=== PATIENT | male | born 1950 | race African-American/Black ===

== ENCOUNTER 2023-08-16 16:20 | Outpatient (CLI) | payer MEDICARE, SELFPAY ==
[2023-08-16 18:24] LABS: Basophils # 0.1 K/mm3 (0-0.2); Basophils % 0.4 % (0.1-2.0); Eosinophils % 0.3 % (0.1-12.0); Hematocrit 39.1 % (42.0-52.0); Hemoglobin 12.8 g/dL (14.1-18.0); Lymphocytes # 1.3 K/mm3 (0.7-4.5); Lymphocytes % 11.2 % (10-50); Mean Corpuscular HGB Conc 32.8 g/dL (31.8-35.4); Mean Corpuscular Hemoglobin 31.2 pg (27.0-31.2); Mean Corpuscular Volume 95.2 fl (80-94); Mean Platelet Volume 8.3 fl (7.4-10.4); Monocytes # 0.5 K/mm3 (0.1-1.0); Neutrophils # 9.9 K/mm3 (1.8-7.8); Neutrophils % 84.1 % (37.0-80.0); Platelet Count 445 K/mm3 (142-424); Red Blood Count 4.11 M/mm3 (4.60-6.20); Red Cell Distribution Width 13.3 % (11.5-17.5); White Blood Count 11.8 K/mm3 (4.8-10.8)
[2023-08-16 18:43] LABS: Alanine Aminotransferase 56 U/L (12-78); Albumin Level 3.6 g/dl (3.5-5.0); Albumin/Globulin Ratio 1.2 (1.1-1.8); Alkaline Phosphatase 86 U/L (38-126); Aspartate Amino Transferase 73 U/L (17-59); Bilirubin,Total 0.5 mg/dl (0.2-1.3); Blood Urea Nitrogen 16 mg/dl (9-20); Calcium 9.1 mg/dl (8.4-10.2); Carbon Dioxide 33 mmol/L (22.0-30.0); Chloride 95 mmol/L (98-107); Estimated Glomerular Filt Rate 133 ml/min (>60); GFR (African American) 161 ML/MIN (>60); Glucose 199 mg/dl (74-100); Sodium 137 mmol/L (136-145); Total Protein,Serum 6.6 g/dl (6.3-8.2)
[2023-08-16 19:19] LABS: Occult Blood,Stool Negative (Negative)
== END 2023-08-16 23:59 | disposition home or self-care (01) ==
PROVIDERS: PCP Nurse Practitioner Family; Visit Provider Family Medicine
DX: R53.83 Other fatigue (principal); R19.7 Diarrhea, unspecified
CPT/HCPCS: 80053; 82272; 85025; G0328

== ENCOUNTER 2023-09-21 19:15 | Emergency (ER) | payer MEDICARE, SELFPAY ==
[2023-09-21] VITALS (9 sets, daily range): BP systolic 102–141; BP diastolic 42–62; PULSE 53–89; RESP 15–18; TEMP 37.2–37.4; O2SAT 98–100; BMI 19.5
--- NOTE | 2023-09-21 19:04 | ED_ITS ---
<Statement entered by Vicky Varghese MD - 09/21/23 22:58> I was consulted by the RINKU, and we discussed the complexity of the problems being addressed. I approved the treatment and management plan for this patient's care in the emergency department, thus performing a substantive portion of the medical decision making. Vicky Varghese MD, MELBA, FACEP Discharge Plan Disposition Patient Disposition: Home, Self-Care Condition: Good Prescriptions Prescriptions: No Action hydroxyzine pamoate [Vistaril] 25 mg capsule 25 mg PO TID PRN (Reason: anxiety) Qty: 30 0RF ibuprofen 600 mg tablet 600 mg PO Q6H PRN (Reason: fever or pain) Qty: 120 0RF lansoprazole 15 mg capsule,delayed release(DR/EC) 15 mg PO QAM Qty: 90 0RF quetiapine [Seroquel] 25 mg tablet 75 mg PO BID Qty: 180 3RF terazosin 2 mg capsule 2 mg PO HS Qty: 90 3RF acetaminophen [Tylenol Extra Strength] 500 mg tablet 500 mg PO Q6H PRN (Reason: fever or pain) Qty: 90 0RF lactulose 20 gram/30 mL solution 20 g PO DAILY PRN (Reason: constipation) Qty: 3000 2RF loperamide [Imodium A-D] 2 mg capsule 2 mg PO Q6H PRN (Reason: loose stool) Qty: 30 0RF ondansetron HCl 4 mg tablet 4 mg PO Q6H PRN (Reason: nausea and vomiting) Qty: 30 0RF lorazepam 0.5 mg tablet 0.5 mg PO BID Qty: 60 0RF Referrals Follow up/Referrals: Provider,Referral, [Primary Care Provider] - See instructions Activity Restrictions/Add. Instructions Additional Instructions/Restrictions: Patient needs a bowel regimen for chronic constipation, patient needs further evaluation of his gallbladder function, patient needs a nonemergent contrasted study of his abdomen pelvis per the radiologist recommendation for potential findings seen on the noncontrasted study. Return to ER for any worsening signs or symptoms. Clinical Impressions Clinical Impression: Abdominal pain Instructions Patient Instructions: DI for Acute Abdominal Pain Discharge ED Provider: Vicky Varghese General Adult HPI <TEREZA Jimenez - Last Filed: 09/21/23 22:28> General Chief complaint: Abdominal Pain Stated complaint: AMS, ABD PAIN Time Seen by Provider: 09/21/23 19:25 History of Present Illness HPI narrative: Patient presents from local senior living for evaluation of abdominal pain. At the time my exam I cannot get any history from the patient as he has chronic communication deficit and all he can do is grunt. He cannot follow commands at the moment. Reportedly he is on a pur?ed diet but has a PEG tube placed for future needs has a chronic indwelling Wakefield for chronic urinary retention for BPH. Reportedly he communicated that he was having abdominal pain to the senior living staff and he sent him here for evaluation. No other history can be obtained from the patient. Related Data Previous Rx's Medication Instructions Recorded acetaminophen 500 mg tablet 500 mg PO Q6H PRN fever or pain 07/26/23 (Tylenol Extra Strength) #90 tabs hydroxyzine pamoate 25 mg capsule 25 mg PO TID PRN anxiety #30 caps 07/26/23 (Vistaril) ibuprofen 600 mg tablet 600 mg PO Q6H PRN fever or pain 07/26/23 #120 tabs lactulose 20 gram/30 mL oral 20 g (30 mL) PO DAILY PRN 07/26/23 solution constipation #3,000 mL lansoprazole 15 mg capsule,delayed 15 mg PO QAM #90 caps 07/26/23 release loperamide 2 mg capsule (Imodium 2 mg PO Q6H PRN loose stool #30 07/26/23 A-D) caps ondansetron HCl 4 mg tablet 4 mg PO Q6H PRN nausea and 07/26/23 vomiting #30 tabs quetiapine 25 mg tablet (Seroquel) 75 mg (3 x 25 mg) PO BID #180 tabs 07/26/23 terazosin 2 mg capsule 2 mg PO HS #90 caps 07/26/23 lorazepam 0.5 mg tablet 0.5 mg PO BID #60 tabs 08/04/23 Allergies Allergy/AdvReac Type Severity Reaction Status Date / Time simvastatin AdvReac muscle Verified 08/27/23 10:37 aches PFS <TEREZA Jimenez - Last Filed: 09/21/23 22:28> PFS Disclaimer: The information contained in this section may have been updated after the patient was seen, as this information can be updated by other users. Medical History Wakefield catheter in place FTT (failure to thrive) in adult Dysphagia Malnutrition HLD (hyperlipidemia) no current meds HTN (hypertension) Diabetes mellitus Urinary retention Cognitive decline Agitation frequent agitation reported by nursing. occasionally aggressive toward staff Communication deficit SERINA (acute kidney injury) Anxiety and depression Insomnia Pressure ulcer of right buttock, stage 2 Pressure ulcer of sacral region, stage 3 CVA (cerebral vascular accident) Surgical History S/P percutaneous endoscopic gastrostomy (PEG) tube placement History of gastrostomy tube placement Social History (Updated 07/27/23 @ 10:13 by Garrett Brown MD) Smoking Status: Never smoker alcohol intake: former year quit: unkn current occupational status: disabled Travel in the last 8 weeks: None <TEREZA Jimenez - Last Filed: 09/21/23 22:28> ROS Obtained: Yes unobtainable due to mental status and Yes unobtainable due to mental condition Physical Exam <TEREZA Jimenez - Last Filed: 09/21/23 22:28> General General appearance: alert and in no apparent distress Head Head exam: atraumatic and normal inspection Eye Eye exam: Present normal appearance and EOMI ENT ENT exam: Present mucous membranes dry Neck Neck exam: Present normal inspection; Absent lymphadenopathy Chest Chest inspection: Present normal inspection and symmetric chest wall rise; Absent tenderness Respiratory Respiratory exam: Present normal lung sounds bilaterally; Absent respiratory distress, wheezes, stridor or accessory muscle use Cardiovascular Cardiovascular exam: Present regular rate and normal rhythm Abdominal Exam Abdominal exam: Present soft, tenderness (Patient has tenderness to palpation in the lower abdomen without rebound or guarding or rigidity.) and normal bowel sounds; Absent guarding or rebound Neurological Exam Neurological exam: Present alert (Patient is awake and is not interactive not following commands making grunting sounds when asked direct questions. Glascow coma score is a 4 - 2 - 5); Absent oriented X3 Skin Skin exam: Present dry Medical Decision Making <TEREZA Jimenez - Last Filed: 09/21/23 22:28> Medical Records Medical records reviewed: Yes I reviewed the patient's medical records. Juan Inquiry Pt receiving controlled substance: No Vital Signs: 09/21/23 19:15 09/21/23 19:30 09/21/23 20:00 Temperature 99.4 F Temperature Source Rectal Pulse Rate 72 89 Pulse Rate [Left] 73 Respiratory Rate 18 Blood Pressure 120/49 L 126/58 L Blood Pressure [Right Arm] 120/49 L Blood Pressure Mean [Right Arm] 72 Blood Pressure Source [Right Arm] Automatic Cuff Blood Pressure Position [Right Arm] Right Lateral 02 Sat by Pulse Oximetry 99 98 100 Oxygen Delivery Method Room Air 09/21/23 20:55 09/21/23 21:00 Temperature Temperature Source Pulse Rate 68 78 Pulse Rate [Left] Respiratory Rate Blood Pressure 141/62 H 125/56 L Blood Pressure [Right Arm] Blood Pressure Mean [Right Arm] Blood Pressure Source [Right Arm] Blood Pressure Position [Right Arm] 02 Sat by Pulse Oximetry 99 100 Oxygen Delivery Method Lab Data Lab results reviewed: Yes I reviewed the patient's lab results. Lab Results 09/21/23 21:27: WBC 10.8, RBC 3.39 L, Hgb 10.4 L, Hct 31.1 L, MCV 91.8, MCH 30.6, MCHC 33.3, RDW 14.4, Plt Count 399, MPV 8.1, Neut % (Auto) 89.1 H, Lymph % (Auto) 6.6 L, Grundy % (Auto) 3.6, Eos % (Auto) 0.5, Baso % (Auto) 0.1, Neut # (Auto) 9.6 H, Lymph # (Auto) 0.7, Grundy # (Auto) 0.4, Eos # (Auto) 0.1, Baso # (Auto) 0.0, Sodium 133 L, Potassium 4.3, Chloride 102, Carbon Dioxide 28, Anion Gap 7.3, BUN 21 H, Creatinine 0.80, Estimated Creat Clear 54, Estimated GFR 95, Est GFR ( Amer) 115, Glucose 185 H, Calcium 8.5, Total Bilirubin 0.2, AST 37, ALT 50, Alkaline Phosphatase 78, Total Protein 6.2 L, Albumin 2.9 L, G lobulin 3.3 H, Albumin/Globulin Ratio 0.9 L 09/21/23 21:27 09/21/23 21:27 Orders (Tests/Meds): ED MEDICATIONS Discontinued Medications Generic Name Dose Route Start Last Admin Trade Name Freq PRN Reason Stop Dose Admin Acetaminophen 1,000 mg 09/21/23 20:00 09/21/23 21:00 Acetaminophen 1,000mg/100ml Vial IV 09/21/23 20:01 1,000 mg ONCE ONE Administration Lactated Ringer's 1,000 mls @ 999 mls/hr 09/21/23 20:00 09/21/23 20:57 Lactated Ringer's 1000 Ml Bag IV 09/21/23 21:00 999 mls/hr .Q1H1M ONE Administration Ondansetron HCl 4 mg 09/21/23 20:00 09/21/23 20:56 Ondansetron 4mg/2ml Vial IV 09/21/23 20:01 4 mg ONCE ONE Administration ORDERS Category Date Time Status CT abdomen pelvis wo con Stat Cat Scan 09/21/23 20:01 Completed POCUS Point of Care (ER Only) Stat Exams 09/21/23 21:09 Taken CBC w/Auto Diff [Complete Blood Count Auto Diff] Stat Lab 09/21/23 21:27 Results CMP [Comprehensive Metabolic Panel] Stat Lab 09/21/23 21:27 Completed UA [Urinalysis and Microscopic] Stat Lab 09/21/23 20:01 Ordered Medical Decision Narrative: In summary patient is a 73-year-old male who presents to the emergency department for evaluation of reported abdominal pain. Patient is hemodynamically stable upon arrival, afebrile. Physical exam shows a severely cachectic, with a BMI of 19, 73-year-old male who otherwise is in no acute distress. GCS is currently 11 primarily due to the ability to follow commands or communicate but is awake. Patient grimaces when at palpation of his bilateral lower quadrant but bowel sounds are normal active. Differential diagnosis includes bowel obstruction versus constipation versus cholecystitis versus ulcer disease versus diverticulitis etc. Initial workup will be conducted with hematologic labs urinalysis CT scan abdomen pelvis. Initial interventions include crystalloid bolus Toradol Tylenol Zofran. Initial workup reviewed by me shows that his hematologic labs are nonactionable and his CT scan has multiple chronic findings but no acute processes. Upon repeat evaluation patient is resting comfortably and I am unable to provoke any focal abdominal pain. We have been unable to identify any acute serious or life-threatening problem requiring intervention during her ER workup. Given this, the patient is appropriate for discharge back to [facility] facility with outpatient follow-up for the chronic findings found on CT. <Vicky Varghese MD - Last Filed: 09/21/23 21:43> Vital Signs: 09/21/23 19:15 09/21/23 19:30 09/21/23 20:00 Temperature 99.4 F Temperature Source Rectal Pulse Rate 72 89 Pulse Rate [Left] 73 Respiratory Rate 18 Blood Pressure 120/49 L 126/58 L Blood Pressure [Right Arm] 120/49 L Blood Pressure Mean [Right Arm] 72 Blood Pressure Source [Right Arm] Automatic Cuff Blood Pressure Position [Right Arm] Right Lateral 02 Sat by Pulse Oximetry 99 98 100 Oxygen Delivery Method Room Air 09/21/23 20:55 09/21/23 21:00 Temperature Temperature Source Pulse Rate 68 78 Pulse Rate [Left] Respiratory Rate Blood Pressure 141/62 H 125/56 L Blood Pressure [Right Arm] Blood Pressure Mean [Right Arm] Blood Pressure Source [Right Arm] Blood Pressure Position [Right Arm] 02 Sat by Pulse Oximetry 99 100 Oxygen Delivery Method Lab Data Lab Results 09/21/23 21:27: WBC 10.8, RBC 3.39 L, Hgb 10.4 L, Hct 31.1 L, MCV 91.8, MCH 30.6, MCHC 33.3, RDW 14.4, Plt Count 399, MPV 8.1, Neut % (Auto) 89.1 H, Lymph % (Auto) 6.6 L, Grundy % (Auto) 3.6, Eos % (Auto) 0.5, Baso % (Auto) 0.1, Neut # (Auto) 9.6 H, Lymph # (Auto) 0.7, Grundy # (Auto) 0.4, Eos # (Auto) 0.1, Baso # (Auto) 0.0, Sodium 133 L, Potassium 4.3, Chloride 102, Carbon Dioxide 28, Anion Gap 7.3, BUN 21 H, Creatinine 0.80, Estimated Creat Clear 54, Estimated GFR 95, Est GFR ( Amer) 115, Glucose 185 H, Calcium 8.5, Total Bilirubin 0.2, AST 37, ALT 50, Alkaline Phosphatase 78, Total Protein 6.2 L, Albumin 2.9 L, G lobulin 3.3 H, Albumin/Globulin Ratio 0.9 L Orders (Tests/Meds): ED MEDICATIONS Discontinued Medications Generic Name Dose Route Start Last Admin Trade Name Guero PRN Reason Stop Dose Admin Acetaminophen 1,000 mg 09/21/23 20:00 09/21/23 21:00 Acetaminophen 1,000mg/100ml Vial IV 09/21/23 20:01 1,000 mg ONCE ONE Administration Lactated Ringer's 1,000 mls @ 999 mls/hr 09/21/23 20:00 09/21/23 20:57 Lactated Ringer's 1000 Ml Bag IV 09/21/23 21:00 999 mls/hr .Q1H1M ONE Administration Ondansetron HCl 4 mg 09/21/23 20:00 09/21/23 20:56 Ondansetron 4mg/2ml Vial IV 09/21/23 20:01 4 mg ONCE ONE Administration ORDERS Category Date Time Status CT abdomen pelvis wo con Stat Cat Scan 09/21/23 20:01 Completed POCUS Point of Care (ER Only) Stat Exams 09/21/23 21:09 Taken CBC w/Auto Diff [Complete Blood Count Auto Diff] Stat Lab 09/21/23 21:27 Results CMP [Comprehensive Metabolic Panel] Stat Lab 09/21/23 21:27 Completed UA [Urinalysis and Microscopic] Stat Lab 09/21/23 20:01 Ordered Procedures <Vicky Varghese MD - Last Filed: 09/21/23 21:43> Miscellaneous Procedure Procedure Performed: Limited RUQ ultrasound Indication: Distended gallbladder on CT scan Identified structures: -Gallbladder -Gallbladder wall -Common bile duct -Liver Findings: Gallbladder is distended but there is no evidence of gallstones or sludge no pericholecystic fluid or anterior gallbladder wall thickening, common bile duct is normal Impression: Distended gallbladder but otherwise no evidence of radiographic cholecystitis or choledocholithiasis Images were saved to permanent archive The study was technically adequate CPT 71045-52 This study was performed by me, and I personally interpreted all images/videos. Based on my clinical judgement, these images were adequate and did not necessitate further imaging. Critical Care <TEREZA Jimenez - Last Filed: 09/21/23 22:28> Critical Care Time Critical Care Time: No
--- NOTE | 2023-09-21 20:01 | CT_ITS ---
PROCEDURE INFORMATION: Exam: CT Abdomen And Pelvis Without Contrast Exam date and time: 09/21/2023 8:16 PM Age: 73 years old Clinical indication: Abdominal pain; Generalized; Additional info: Acute abd pain TECHNIQUE: Imaging protocol: Computed tomography of the abdomen and pelvis without contrast. Radiation optimization: All CT scans at this facility use at least one of these dose optimization techniques: automated exposure control; mA and/or kV adjustment per patient size (includes targeted exams where dose is matched to clinical indication); or iterative reconstruction. COMPARISON: No relevant prior studies available. FINDINGS: Tubes, catheters and devices: A balloon bladder catheter is present. A PEG tube is present within the distal stomach, appearing appropriately situated. Lungs: The visualized lung bases are clear. Pleural spaces: There are no pleural effusions. Heart: The visualized portions of the heart are unremarkable. There is no evidence of pericardial fluid collections. Liver: The liver demonstrates punctate calcifications consistent with remote granulomatous organism exposure. Evaluation of the liver is limited without intravenous contrast. Gallbladder and biliary ducts: The gallbladder appears mildly distended. measuring 8.6 x 4.6 cm. Recommend additional evaluation. Pancreas: The pancreas is not well seen. There is soft tissue ill-defined density throughout the anterior upper mid abdomen which is not well evaluated without intravenous and gastrointestinal contrast. While findings could reflect unopacified loops of bowel, cannot exclude pathologic adenopathy and or masses. Recommend additional evaluation. Spleen: The spleen demonstrates punctate calcifications, consistent with remote granulomatous organism exposure. Evaluation the spleen is limited without intravenous contrast. Adrenal glands: Evaluation of the adrenal glands is limited without intravenous contrast. No gross abnormalities. Kidneys and ureters: Evaluation the kidneys is limited without intravenous contrast. No gross hydronephrosis. Stomach and bowel: Evaluation the stomach is limited without gastrointestinal contrast. The stomach appears otherwise within range of normal. The duodenum is not well seen. There is mildly excessive colonic stool content. The rectum is distended with fecal material measuring 7.8 cm. Small bowel evaluation is limited due to lack of gastrointestinal contrast. No significant small bowel distension. Appendix: An abnormal appendix is not definitively seen, although evaluation is limited without intravenous and gastrointestinal contrast. Intraperitoneal space: No free air. No significant fluid collection. Vasculature: Evaluation is limited by the lack of intravenous and gastrointestinal contrast as well as motion artifact and patient cachexia. The aorta and iliac arteries demonstrate mild atherosclerotic calcification. Lymph nodes: See Pancreas finding. Urinary bladder: The bladder is decompressed by Wakefield catheter and not optimally evaluated. Small particulate increased density material layers dependently within the bladder suggestive of stones/stone debris. Reproductive: The prostate demonstrates moderate nonspecific enlargement. The seminal vesicles are normal. Prostate measures 6.9 x 5.2 cm. Symmetric ovoid densities in the inguinal canals bilaterally are not optimally evaluated but may reflect high-riding testicles within the inguinal canals. Correlate with focal physical examination. Bones/joints: There are mild degenerative changes of the symphyseal pubic joint. There are mild degenerative changes of the hip joints. There are mild degenerative changes of the sacroiliac joints. The thoracolumbar spine demonstrates mild degenerative changes at multiple levels. There is mild heterogeneity to the L3 through L5 vertebral bodies of uncertain clinical significance. Findings could reflect degenerative change. Cannot entirely exclude osseous metastases in the appropriate clinical setting. Correlate clinically. Soft tissues: There is hazy and diffuse fat stranding of the visualized subcutaneous tissues suggesting diffuse edema/anasarca. IMPRESSION: 1. Mild gallbladder distension. Correlate clinically and recommend further evaluation with right upper quadrant ultrasound. 2. Study quality significantly limited due to lack of intravenous and gastrointestinal contrast, motion artifact and patient cachexia. Recommend follow-up exam with gastrointestinal and intravenous contrast. 3. Small particulate increased density material layers dependently within the bladder suggestive of stones/stone debris. 4. Mild constipation. 5. Ill define tissue density in the anterior upper to mid abdomen which is not optimally evaluated given the above described limitations. While findings could reflect unopacified loops of bowel, cannot exclude mass or pathologic adenopathy. Recommend additional evaluation. 4. Nonspecific prostatic enlargement. Correlate clinically and with PSA levels.
--- NOTE | 2023-09-21 20:11 | PC.NURSE ---
patient to CT
[2023-09-21] MEDS: ONDANSETRON 4MG/2ML VIAL 4 MG IV (20:56)
[2023-09-21] MEDS: LACTATED RINGERS 1000ML 1,000 ML 999 ML IV (20:57)
[2023-09-21] MEDS: ACETAMINOPHEN 1,000MG/100ML VIAL 1000 MG IV (21:00)
--- NOTE | 2023-09-21 21:07 | PC.NURSE ---
Dr. Varghese s/w AD
[2023-09-21 21:41] LABS: Basophils % 0.1 % (0.1-2.0); Eosinophils # 0.1 K/mm3 (0.0-0.4); Eosinophils % 0.5 % (0.1-12.0); Hematocrit 31.1 % (42.0-52.0); Hemoglobin 10.4 g/dL (14.1-18.0); Lymphocytes # 0.7 K/mm3 (0.7-4.5); Lymphocytes % 6.6 % (10-50); Mean Corpuscular HGB Conc 33.3 g/dL (31.8-35.4); Mean Corpuscular Hemoglobin 30.6 pg (27.0-31.2); Mean Corpuscular Volume 91.8 fl (80-94); Mean Platelet Volume 8.1 fl (7.4-10.4); Monocytes # 0.4 K/mm3 (0.1-1.0); Monocytes % 3.6 % (1.7-9.3); Neutrophils # 9.6 K/mm3 (1.8-7.8); Neutrophils % 89.1 % (37.0-80.0); Platelet Count 399 K/mm3 (142-424); Red Blood Count 3.39 M/mm3 (4.60-6.20); Red Cell Distribution Width 14.4 % (11.5-17.5); White Blood Count 10.8 K/mm3 (4.8-10.8)
[2023-09-21 21:53] LABS: MANUAL DIFFERENTIAL MANUAL DIFFERENTIAL (MANUAL DIFF)
--- NOTE | 2023-09-21 22:04 | PC.NURSE ---
Gave update to Mckenna @ [facility]
[2023-09-21 22:06] LABS: Chloride 102 mmol/L (98-107)
[2023-09-21 22:07] LABS: Potassium 4.3 mmoL/L (3.5-5.1); Sodium 133 mmol/L (136-145)
[2023-09-21 22:09] LABS: Alanine Aminotransferase 50 U/L (12-78); Albumin Level 2.9 g/dl (3.5-5.0); Albumin/Globulin Ratio 0.9 (1.1-1.8); Alkaline Phosphatase 78 U/L (38-126); Anion Gap 7.3 mEq/L (5-15); Aspartate Amino Transferase 37 U/L (17-59); Bilirubin,Total 0.2 mg/dl (0.2-1.3); Blood Urea Nitrogen 21 mg/dl (9-20); Carbon Dioxide 28 mmol/L (22.0-30.0); Creatinine Clearance Estimated 54 mL/min (50-200); Estimated Glomerular Filt Rate 95 ml/min (>60); GFR (African American) 115 ML/MIN (>60); Globulin 3.3 g/dL (1.3-3.2); Total Protein,Serum 6.2 g/dl (6.3-8.2)
[2023-09-21 22:10] LABS: Calcium 8.5 mg/dl (8.4-10.2); Glucose 185 mg/dl (74-100)
[2023-09-21 22:29] LABS: Eosinophils % 1 % (0-3); Lymphocytes % 6 % (10-50); Monocytes % 1 % (2-9); Neutrophils % 92 % (42-76); Total Cells Counted 100
[2023-09-21 22:30] LABS: RBC Morphology Normal
--- NOTE | 2023-09-21 23:02 | PC.WOUNDNOTE ---
Spoke with MILLER Andres at [facility] to update on patient condition and that transportation is being arranged at this time
--- NOTE | 2023-09-21 23:10 | PC.NURSE ---
rounded on patient, patient repositioned for comfort
--- NOTE | 2023-09-21 23:20 | PC.NURSE ---
[facility] arrived for patient transport to [facility].
== END 2023-09-21 23:29 | disposition home or self-care (01) ==
PROVIDERS: Physician Assistant; Emergency Provider Student in an Organized Health Care Education/Training Program
DX: R10.9 Unspecified abdominal pain (principal); R40.2422 Glasgow coma scale score 9-12, at arrival to emergency department; R64 Cachexia; E87.1 Hypo-osmolality and hyponatremia; R62.7 Adult failure to thrive; I10 Essential (primary) hypertension; E78.5 Hyperlipidemia, unspecified; Z96.0 Presence of urogenital implants; Z93.1 Gastrostomy status; Z86.73 Personal history of transient ischemic attack (TIA), and cerebral infarction without residual deficits
CPT/HCPCS: 74176; 80053; 85007; 85025; 85027; 96361; 96374; 96375; 99285; J0131; J2405; J7120

== ENCOUNTER 2023-09-27 11:07 | Outpatient (CLI) | payer MEDICARE, SELFPAY ==
--- NOTE | 2023-09-27 11:08 | FL_ITS ---
FINAL REPORT CLINICAL HISTORY: dysphagia 8.11 mGy 131.94 DAP 1:36 fluoro FINDINGS: MODIFIED BARIUM SWALLOW History: Dysphagia FINDINGS: Fluoroscopy was provided for the speech pathologist to evaluate the swallowing mechanism. The patient was given several different consistencies of barium while the swallow was visualized fluoroscopically. The report of the speech pathologist should be consulted prior to making dietary decisions. Fluoroscopy time: 1 minute 36 seconds Radiation exposure in Reference air Kerma: 8.11 mGy IMPRESSION: Modified barium swallow under fluoroscopic guidance. Please see the report of the speech pathologist for Dietary recommendations. Films reviewed , interpreted and dictated by Dr. Augustine Transcribed by Jose E Mistry PA-C. Reviewed, Interpreted and Dictated by Balbir Augustine III, MD Transcribed by TEREZA Durham Authenticated and [facility]
--- NOTE | 2023-09-27 12:15 | HMH.SLMBS2 ---
Speech & Language Evaluation Speech/Language Mod Barium Swallow Start: 09/27/23 11:42 Freq: once Status: Complete Protocol: Document 09/27/23 11:42 [facility] (Rec: 09/27/23 12:05 [employer]aptop) Co-signed By [facility] Komal General Information General Current Food Consistancy Pureed,Pudding Liquids Dentition Edentulous Oxygen Status Room Air Ability to Follow Directions Poor Communication Ability Severe Impairment MBS Recommendations Diet Dietary Recommendations NPO Treatment/Strategies Strategy/Precaution Recommend Sitting Upright (90 deg),No Straw Mod Barium Swallow Impressions Summary and Impressions Oral Phase Impression Severe Impairment Oral Phase Summary Severe impairment of oral phase of swallow observed. Pt had minimal anterior loss on all trials. Severe lingual discoordination observed on all trials. Severe bolus pooling observed under tongue and left and right sides of mouth. Severe scattered loss of bolus observed on all trials. Unable to fully assess mastication and manipulation of bolus '2 aspiration observed during puree/pudding/ honey thick trial. Pharyngeal Phase Impression Severe Impairment Pharyngeal Phase Summary Severe impairment of the pharyngeal phase of swallow. Pt demonstrated maddie aspiration on each consistency trialed. Pt's swallow observed to be severely delayed on all trials. Reduced hyolaryngeal excursion resulting in decreased epiglottic excursion. Severely reduced base of tongue retraction. Severe residue noted on the pharyngeal wall, vallecula, and pyriform sinus. Speech/Language MBS Assessment/Goals/Plan Assessment Date of Evaluation: 09/27/23 Evaluation Type Initial Certification Assessment/Problems dysphagia per MD order Does Patient Qualify for Service No Qualify/Failure Comment Based on results of the instrumental assessment (MBSS) and clinical observations, pt
== END 2023-09-27 23:59 | disposition home or self-care (01) ==
LOC: RAD 11:08
PROVIDERS: PCP Nurse Practitioner Family; Visit Provider Nurse Practitioner Family
DX: R13.10 Dysphagia, unspecified (principal)
CPT/HCPCS: 70371; 92611

== ENCOUNTER 2023-10-04 08:07 | Outpatient (CLI) | payer MEDICARE, SELFPAY ==
--- NOTE | 2023-10-04 08:08 | US_ITS ---
FINAL REPORT TECHNIQUE: Ultrasound images of the abdomen were obtained. CLINICAL HISTORY: abnormal abdominal CT COMPARISON: CT dated 09/21/2023 FINDINGS: The pancreas is obscured by bowel gas. There is an echogenic focus in the left lobe of the liver, with acoustical shadowing, consistent with the sizable calcification in the left lobe of the liver seen on CT examination of September 20. The liver is otherwise unremarkable. The gallbladder is mildly distended, with small stones or sludge present, although posterior acoustical shadowing is not well-visualized. The patient was unable to roll into the decubitus position, somewhat limiting overall image quality. The common duct is normal. The right kidney measures 11.1 cm in length and is normal in echogenicity without hydronephrosis. The left kidney is not well-visualized. The spleen is unremarkable. The aorta is normal in caliber. The vena cava is unremarkable. IMPRESSION: Mild gallbladder distention with probable small stones or sludge, although the exam quality is limited secondary to the patient's inability to roll into decubitus positioning. No ductal dilatation is seen. Pancreas is obscured by bowel gas. Echogenic focus in the left lobe of the liver with posterior acoustical shadowing, consistent with the left hepatic calcification seen on CT of September 20. Reviewed, Interpreted and Dictated by Riaz Garcia MD Transcribed by Melissa Cespedes Authenticated and [facility]
== END 2023-10-04 23:59 | disposition home or self-care (01) ==
LOC: RAD 08:08
PROVIDERS: PCP Family Medicine; Visit Provider Family Medicine
DX: R93.5 Abnormal findings on diagnostic imaging of other abdominal regions, including retroperitoneum (principal)
CPT/HCPCS: 76700

== ENCOUNTER 2023-12-09 16:54 | Inpatient (IN) | payer MEDICARE, SELFPAY ==
[2023-12-09 16:54] VITALS: BP 149/65; PULSE 96; RESP 14; TEMP 37.6; O2SAT 99; BMI 18.8
--- NOTE | 2023-12-09 17:04 | CT_ITS ---
PROCEDURE INFORMATION: Exam: CT Abdomen And Pelvis With Contrast Exam date and time: 12/09/2023 6:11 PM Age: 73 years old Clinical indication: Other: Fever; Additional info: Pelvic ulcers, fever, AMS TECHNIQUE: Imaging protocol: Computed tomography of the abdomen and pelvis with contrast. Radiation optimization: All CT scans at this facility use at least one of these dose optimization techniques: automated exposure control; mA and/or kV adjustment per patient size (includes targeted exams where dose is matched to clinical indication); or iterative reconstruction. Contrast material: ISOVUE; Contrast volume: 75 ml; Contrast route: IV; COMPARISON: CT ABDOMEN PELVIS WO CON 09/21/2023 8:16 PM FINDINGS: Tubes, catheters and devices: Gastrostomy tube in the body of the stomach redemonstrated. Lungs: Lung bases are clear. Liver: Normal. No mass. Gallbladder and biliary ducts: Distended gallbladder without evident wall thickening redemonstrated. No evident bile duct dilatation. Pancreas: Normal. No ductal dilation. Spleen: Normal. No splenomegaly. Adrenal glands: Normal. No mass. Kidneys and ureters: Normal. No hydronephrosis. Stomach and bowel: Markedly dilated stool-filled rectum measuring 8.9 cm in caliber suggesting fecal impaction. Moderate amount of fecal material throughout the remainder of the colon. GI tract structures otherwise unremarkable with no evident wall thickening allowing for incomplete distention. Appendix: No evidence of appendicitis. Intraperitoneal space: Unremarkable. No free air. No significant fluid collection. Vasculature: Unremarkable. No abdominal aortic aneurysm. Lymph nodes: Unremarkable. No enlarged lymph nodes. Urinary bladder: Unremarkable as visualized. Reproductive: Unremarkable as visualized. Bones/joints: Sclerotic lesions are noted within the vertebral bodies of the L3 through L5 vertebra. Interval development of a large decubitus ulcer on the left with extension to the underlying left greater trochanter. No gross bone destruction identified. Early osteomyelitis cannot be totally excluded. There linear extension of the soft tissue air anterior and superior to the ulcer approximately 6 cm visible on coronal image 37 and axial image 108. Soft tissues: [id number] body wall edema compatible with anasarca. Associated intra-abdominal fat tissue edema also noted. IMPRESSION: 1. Large decubitus ulcer adjacent to the left greater trochanter. I cannot exclude very early osteomyelitis although no gross destruction identified. 2. Associated linear air extension anteriorly and superiorly from the ulcer that might reflect developing fistula. The possibility of early necrotizing fasciitis cannot be totally excluded in the proper clinical setting. 3. Anasarca changes. 4. Markedly dilated stool-filled rectum suggesting fecal impaction. Patient may be at risk for developing stercoral colitis of the rectum. 5. Sclerotic lesions are noted within the vertebral bodies of the L3 through L5 vertebra. These might be hemangiomas but developing blastic bone Mets not totally excluded. 6. Distended gallbladder without evident wall thickening redemonstrated. This may be due to prolonged fasting. Consider ultrasound.
--- NOTE | 2023-12-09 17:05 | XR_ITS ---
PROCEDURE INFORMATION: Exam: XR Chest Exam date and time: 12/09/2023 6:09 PM Age: 73 years old Clinical indication: Dyspnea TECHNIQUE: Imaging protocol: Radiologic exam of the chest. Views: 1 view. COMPARISON: CT ABDOMEN PELVIS W CON 12/09/2023 6:11 PM FINDINGS: Lungs: Lungs are clear. Pleural spaces: Incidental pleural appearing lines are noted along the lateral aspects of both naty thoraces. Lung landaverde otherwise clear. Heart/Mediastinum: Unremarkable. No cardiomegaly. Bones/joints: Unremarkable. IMPRESSION: No definite acute disease. Pleural lines are noted bilaterally thought most likely to represent artifact due to skin folds related to the supine positioning especially as no evident pneumothorax identified in the lung bases on the CT of the abdomen pelvis obtained subsequent to this exam. As a precaution consider a upright PA and lateral view of the chest to ensure no pneumothorax.
--- NOTE | 2023-12-09 17:08 | ED_ITS ---
Discharge Plan Disposition Patient Disposition: Admitted Chief Complaint: Recheck/Abnormal Lab/Rx Prescriptions Prescriptions: No Action ibuprofen 600 mg tablet 600 mg PO Q6H PRN (Reason: fever or pain) Qty: 120 0RF lansoprazole 15 mg capsule,delayed release(DR/EC) 15 mg PO QAM Qty: 90 0RF quetiapine [Seroquel] 25 mg tablet 75 mg PO BID Qty: 180 3RF terazosin 2 mg capsule 2 mg PO HS Qty: 90 3RF acetaminophen [Tylenol Extra Strength] 500 mg tablet 500 mg PO Q6H PRN (Reason: fever or pain) Qty: 90 0RF lactulose 20 gram/30 mL solution 20 g PO DAILY PRN (Reason: constipation) Qty: 3000 2RF loperamide [Imodium A-D] 2 mg capsule 2 mg PO Q6H PRN (Reason: loose stool) Qty: 30 0RF ondansetron HCl 4 mg tablet 4 mg PO Q6H PRN (Reason: nausea and vomiting) Qty: 30 0RF lorazepam 0.5 mg tablet 0.5 mg PO BID Qty: 60 0RF oxycodone 5 mg tablet 5 mg PO Q6H Qty: 120 0RF Referrals Follow up/Referrals: Garrett Brown MD [Primary Care Provider] - See instructions Clinical Impressions Clinical Impression: FTT (failure to thrive) in adult, Hyperglycemia, Catheter-associated urinary tract infection, Infected decubitus ulcer, Acute anemia Print Language Print Language: Palauan Discharge ED Provider: Vicky Varghese General Adult HPI General Chief complaint: Recheck/Abnormal Lab/Rx Stated complaint: FS 586, Fevers, wounds Time Seen by Provider: 12/09/23 16:56 Mode of Arrival: EMS Source of Information: Patient Limitations: nonverbal Description of Symptoms (Recalled from ER Triage Doc. by RN): Marisela from [place] called report stating the pt had blood work last night and his glucose was in the 500's. When it was rechecked today with a finger stick it was the same. around 1400 pt was give 10 units of insulin lispro. Reportedly pt was taken off all insulin at and is no longer diabetic. pt is on continuous Gtube feeds. EMS reports his FS was 548 in route. pts continuous tube feeds were stopped when EMS arrived. pt is nonverbal and therefore difficult to full assess. pt has severe oral thrush. pt has numerous varying in severity nonhealing ulcers. bilaterally on hips and feet. pt is 99.4 F oral, hip wounds are hot to the touch. History of Present Illness HPI narrative: Patient is a 73-year-old brought in by EMS from a intermediate for multiple complaints. I spoke with Dr. Brown who is his physician at the intermediate about this patient. I also did a chart review and history is primarily obtained from 2 sources. Patient had a prolonged stay at [facility] recently has had a history of a CVA has had known decubitus ulcers with recent debridement also has history of diabetes. He has had significant and progressive functional decline and is a davis of the [facility]. He is DNR as directed by that source. He was sent in for hyperglycemia low-grade fever infected decubitus ulcers and his overall functional decline. Related Data Previous Rx's ?Medication ?Instructions ?Recorded acetaminophen 500 mg tablet 500 mg PO Q6H PRN fever or pain 07/26/23 (Tylenol Extra Strength) #90 tabs ibuprofen 600 mg tablet 600 mg PO Q6H PRN fever or pain 07/26/23 #120 tabs lactulose 20 gram/30 mL oral 20 g (30 mL) PO DAILY PRN 07/26/23 solution constipation #3,000 mL lansoprazole 15 mg capsule,delayed 15 mg PO QAM #90 caps 07/26/23 release loperamide 2 mg capsule (Imodium 2 mg PO Q6H PRN loose stool #30 07/26/23 A-D) caps ondansetron HCl 4 mg tablet 4 mg PO Q6H PRN nausea and 07/26/23 vomiting #30 tabs quetiapine 25 mg tablet (Seroquel) 75 mg (3 x 25 mg) PO BID #180 tabs 07/26/23 terazosin 2 mg capsule 2 mg PO HS #90 caps 07/26/23 lorazepam 0.5 mg tablet 0.5 mg PO BID #60 tabs 08/04/23 oxycodone 5 mg tablet 5 mg PO Q6H pain #120 tabs 12/08/23 Allergies Allergy/AdvReac Type Severity Reaction Status Date / Time simvastatin AdvReac muscle Verified 12/08/23 10:16 aches PFSH PFSH Disclaimer: The information contained in this section may have been updated after the patient was seen, as this information can be updated by other users. Medical History (Updated 12/09/23 @ 19:51 by Vicky Varghese MD) Dysphagia Decubital ulcer Dysphagia Cognitive impairment Abnormal abdominal CT scan [place] catheter in place FTT (failure to thrive) in adult Malnutrition HLD (hyperlipidemia) HTN (hypertension) Diabetes mellitus Urinary retention Cognitive decline Agitation Communication deficit SERINA (acute kidney injury) Anxiety and depression Insomnia CVA (cerebral vascular accident) Surgical History (Updated 11/20/23 @ 20:27 by Garrett Brown MD) S/P percutaneous endoscopic gastrostomy (PEG) tube placement Social History Smoking Status: Unknown if ever smoked alcohol intake: former year quit: unkn current occupational status: disabled Travel in the last 8 weeks: None Other Medical History Have you received the Pneumonia Vaccine: Yes ROS Obtained: Yes All systems reviewed & no additional complaints except as documented Physical Exam General General appearance: other (Cachectic nonverbal ill-appearing minimally interactive with his environment) Respiratory Respiratory exam: Present normal lung sounds bilaterally; Absent respiratory distress Cardiovascular Cardiovascular exam: Present regular rate and normal rhythm Abdominal Exam Abdominal exam: Present soft; Absent distention or tenderness Back Exam Back exam: Present other (Multiple decubitus ulcers bilaterally between the greater trochanter and bilateral ischial tuberosities on the left in particular there was foul-smelling purulent drainage extending into the subcutaneous and muscular regions) Neurological Exam Neurological exam: Present other (Patient contracted minimally interactive eyes are open) Medical Decision Making Medical Records Screening: Per USPSTF and CDC recommendations, given the prevalence of disease in our region, it is our hospital?s policy to screen for HIV and viral Hepatitis for all patients aged 18 and over and those with ongoing risk factors. Juan Inquiry Pt receiving controlled substance: No Vital Signs: 12/09/23 16:54 12/09/23 18:28 12/09/23 18:30 Temperature 99.6 F Temperature Source Oral Pulse Rate 88 91 H Pulse Rate [Left] 96 H Respiratory Rate 14 Blood Pressure 130/71 134/68 Blood Pressure [Left Arm] 149/65 H Blood Pressure Mean 86 89 Blood Pressure Mean [Left Arm] 93 Blood Pressure Source [Left Arm] Automatic Cuff Blood Pressure Position [Left Arm] Sitting 02 Sat by Pulse Oximetry 99 100 100 Oxygen Delivery Method Room Air Room Air Room Air Lab Data Lab Results 12/09/23 16:45: WBC 8.3, RBC 2.92 L, Hgb 8.5 L, Hct 28.0 L, MCV 95.9 H, MCH 29.0, MCHC 30.3 L, RDW 14.0, Plt Count 525 H, MPV 8.2, Neut % (Auto) 80.6 H, Lymph % (Auto) 15.7, Orange % (Auto) 2.5, Eos % (Auto) 0.9, Baso % (Auto) 0.3, Neut # (Auto) 6.7, Lymph # (Auto) 1.3, Orange # (Auto) 0.2, Eos # (Auto) 0.1, Baso # (Auto) 0.0, Sodium 146 H, Potassium 3.8, Chloride 108 H, Carbon Dioxide 37 H, Anion Gap 4.8 L, BUN 33 H, Creatinine 0.60 L, Estimated Creat Clear 59, Estimated GFR 133, Est GFR ( Amer) 161, Glucose 462 H*, Calcium 8.6, Phosphorus 3.4, Magnesium 2.1, Total Bilirubin 0.2, AST 60 H, ALT 162 H, A lkaline Phosphatase 201 H, C-Reactive Protein 154.0 H, Total Protein 6.5, A lbumin 2.6 L, Globulin 3.9 H, Albumin/Globulin Ratio 0.7 L 12/09/23 17:05: VBG pH 7.37, VBG pCO2 54.0 H, VBG pO2 37.5, VBG HCO3 30.2 H, VBG Total CO2 31.8 H, VBG O2 Saturation 64.2, VBG Base Excess 4.8 H, VBG Lactic Acid 2.2 H 12/09/23 17:29: SARS-CoV-2 (PCR) Not detected, Influenza A Untype (PCR) Not detected, Influenza Type B (PCR) Not detected 12/09/23 18:24: Urine Color Yellow, Urine Appearance Clear, Urine pH 7.0, Ur Specific [place] 1.015, Urine Protein Trace, Urine Glucose (UA) 2+, Urine Ketones Negative, Urine Blood Trace-i, Urine Nitrate Positive, Urine Bilirubin Negative, Urine Urobilinogen 0.2, Ur Leukocyte Esterase Trace, Urine RBC 3-5, Urine WBC Tntc, Ur Squamous Epith Cells 5-10, Urine Bacteria 4+ 12/09/23 16:45 12/09/23 16:45 Orders (Tests/Meds): ED MEDICATIONS Generic Name Dose Route Start Last Admin Trade Name Freq PRN Reason Stop Dose Admin Miscellaneous 1 each 12/09/23 17:15 12/09/23 18:00 Vancomycin Consult Request NOTAPPLIC 01/08/24 17:14 1 each CONSULT PHARMACY GUIDO Administration Discontinued Medications Generic Name Dose Route Start Last Admin Trade Name Freq PRN Reason Stop Dose Admin Lactated Ringer's 1,000 mls @ 999 mls/hr 12/09/23 17:15 12/09/23 18:01 Lactated Ringer's 1000 Ml Bag IV 12/09/23 18:15 999 mls/hr .Q1H1M GUIDO Administration Piperacillin Sod/Tazobactam 50 mls @ 100 mls/hr 12/09/23 17:06 12/09/23 18:01 Sod 3.375 gm/ Sodium Chloride IV 12/09/23 17:35 Not Given ONCE ONE Vancomycin/PEG/NADA/Lysine/Water 1.25 gm in 250 mls @ 125 mls/hr 12/09/23 17:15 12/09/23 18:18 Vancomycin 1.25gm/250ml (Peg) Premix IV 12/09/23 19:14 125 mls/hr ONCE ONE Administration Piperacillin Sod/Tazobactam 50 mls @ 100 mls/hr 12/09/23 17:59 12/09/23 18:01 Sod 3.375 gm/ Sodium Chloride IV 12/09/23 18:28 100 mls/hr ONCE ONE Administration Iopamidol 75 ml 12/09/23 18:19 12/09/23 18:19 Iopamidol-370 (76%);100ml Bottle IV 12/09/23 18:20 75 ml ONCE ONE Administration Sodium Chloride 10 ml 12/09/23 18:19 12/09/23 18:19 Sodium Chloride 0.9% 10ml Syr (Rad Only) IV 12/09/23 18:20 10 ml ONCE ONE Administration ORDERS Category Date Time Status CT abdomen pelvis w con Stat Cat Scan 12/09/23 17:04 Completed CXR --portable [XR chest portable] Stat Exams 12/09/23 17:05 Completed CBC w/Auto Diff [Complete Blood Count Auto Diff] Stat Lab 12/09/23 16:45 Completed CMP [Comprehensive Metabolic Panel] Stat Lab 12/09/23 16:45 Completed CRP [C-Reactive Protein] Stat Lab 12/09/23 16:45 Completed Lactate Venous Stat Lab 12/09/23 17:04 Ordered Magnesium Stat Lab 12/09/23 16:45 Completed Phosphorous Stat Lab 12/09/23 16:45 Completed Rapid PCR Covid and Flu A/B Stat Lab 12/09/23 17:29 Completed UA [Urinalysis and Microscopic] Stat Lab 12/09/23 18:24 Completed Blood Culture Stat Micro 12/09/23 17:53 Received Urine Culture Stat Micro 12/09/23 18:24 Received Wound Culture and Gram Stain Stat Micro 12/09/23 18:24 Received Venous Blood Gas Stat RT 12/09/23 17:05 Completed Medical Decision Narrative: Ill-appearing 73-year-old male presenting today with functional decline low- grade fever hyperglycemia and what appears to be chronically infected decubitus ulcers bilaterally worse on the left. Differential includes osteomyelitis, soft tissue infections, infected decubitus ulcers, sepsis, bacteremia, urinary tract infection pneumonia metabolic abnormalities DKA etc. Broad workup is being completed. This patient is chronically ill and is DNR/DNI but given his social situation goals of care discussions are very difficult to be had at the moment. Therefore full workup will be completed at the moment. Reassessment patient remains at his baseline. Does have slight worsening of his H&H. This may be from chronic mild blood loss from his decubitus ulcers which are actively oozing. Has significant hyperglycemia without evidence of DKA. Fluid administration are ongoing. No indication for IV insulin at the moment. CT scan findings as below I also personally reviewed and interpreted the images. In particular the left decubitus ulcer over the left greater trochanter has significant tissue loss with fluid and gas that are tracking near the bone cannot rule out osteomyelitis at this point. Patient is very unlikely to be a surgical candidate given his chronic debilitated condition he may need to have ongoing wound management and intermittent debridement but this is a chronic issue not an acute issue that would require emergent surgical transfer. He does have significant elevations in his inflammatory markers which are consistent with this chronic inflammatory process. IV antibiotics have been administered no definitive evidence of sepsis. Patient will need to be admitted for IV antibiotics wound management serial management and measurements of patient's hemoglobin to ensure no ongoing or active blood loss is being missed. He does have some elevated LFTs and a distended gallbladder but inability to have a clinical exam that would be consistent with cholecystitis. No significant wall thickening pericholecystic fluid or calculi within the gallbladder itself. Will not make a diagnosis at the moment of acute cholecystitis. Largely from my opinion I think the patient needs to have goals of care discussion and potentially be made comfort care only given his chronic debilitated status and numerous medical issues that are ongoing. Patient admitted to hospital medicine for further ration and management. 1. Large decubitus ulcer adjacent to the left greater trochanter. I cannot exclude very early osteomyelitis although no gross destruction identified. 2. Associated linear air extension anteriorly and superiorly from the ulcer that might reflect developing fistula. The possibility of early necrotizing fasciitis cannot be totally excluded in the proper clinical setting. 3. Anasarca changes. 4. Markedly dilated stool-filled rectum suggesting fecal impaction. Patient may be at risk for developing stercoral colitis of the rectum. 5. Sclerotic lesions are noted within the vertebral bodies of the L3 through L5 vertebra. These might be hemangiomas but developing blastic bone Mets not totally excluded. 6. Distended gallbladder without evident wall thickening redemonstrated. This may be due to prolonged fasting. Consider ultrasound. Critical Care Critical Care Time Critical Care Time: Yes Attestation: On 12/09/23, the high probability of a clinically significant, sudden or life threatening deterioration of the following system(s) required my full and direct attention, intervention and personal management. The time I documented below is in addition to time spent performing reported procedures but includes the following listed in this critical care notation. Total Time Total Critical Care Time: 35
[2023-12-09 17:17] LABS: Basophils % 0.3 % (0.1-2.0); Eosinophils # 0.1 K/mm3 (0.0-0.4); Eosinophils % 0.9 % (0.1-12.0); Hemoglobin 8.5 g/dL (14.1-18.0); Lymphocytes # 1.3 K/mm3 (0.7-4.5); Lymphocytes % 15.7 % (10-50); Mean Corpuscular HGB Conc 30.3 g/dL (31.8-35.4); Mean Corpuscular Volume 95.9 fl (80-94); Mean Platelet Volume 8.2 fl (7.4-10.4); Monocytes # 0.2 K/mm3 (0.1-1.0); Monocytes % 2.5 % (1.7-9.3); Neutrophils # 6.7 K/mm3 (1.8-7.8); Neutrophils % 80.6 % (37.0-80.0); Platelet Count 525 K/mm3 (142-424); Red Blood Count 2.92 M/mm3 (4.60-6.20); White Blood Count 8.3 K/mm3 (4.8-10.8)
[2023-12-09 17:22] LABS: Alanine Aminotransferase 162 U/L (12-78); Albumin Level 2.6 g/dl (3.5-5.0); Albumin/Globulin Ratio 0.7 (1.1-1.8); Alkaline Phosphatase 201 U/L (38-126); Aspartate Amino Transferase 60 U/L (17-59); Bilirubin,Total 0.2 mg/dl (0.2-1.3); Blood Urea Nitrogen 33 mg/dl (9-20); Calcium 8.6 mg/dl (8.4-10.2); Carbon Dioxide 37 mmol/L (22.0-30.0); Chloride 108 mmol/L (98-107); Creatinine Clearance Estimated 59 mL/min (50-200); Estimated Glomerular Filt Rate 133 ml/min (>60); GFR (African American) 161 ML/MIN (>60); Globulin 3.9 g/dL (1.3-3.2); Magnesium 2.1 mg/dl (1.6-2.3); Phosphorous 3.4 mg/dl (2.5-4.5); Sodium 146 mmol/L (136-145); Total Protein,Serum 6.5 g/dl (6.3-8.2)
[2023-12-09 17:24] LABS: Glucose 462 mg/dl (74-100)
[2023-12-09 17:33] LABS: Anion Gap 4.8 mEq/L (5-15); Potassium 3.8 mmoL/L (3.5-5.1)
--- NOTE | 2023-12-09 17:55 | PC.NURSE ---
multiple needle sticks attempted to draw blood cultures. pt is a difficult stick. I brittanie both blood cultures sets from the same site.
[2023-12-09] MEDS: VANCOMYCIN CONSULT REQUEST 1 EACH NOTAPPLIC (18:00)
[2023-12-09] MEDS: PIPERACILLIN/TAZO 3.375 GM in 0.9 % SODIUM CHLORIDE 50 ML IV (18:01)
[2023-12-09] MEDS: LACTATED RINGERS 1000ML 1,000 ML 999 ML IV (18:01)
--- NOTE | 2023-12-09 18:03 | PC.NURSE ---
pt to ct scan via stretcher
[2023-12-09 18:04] LABS: Coronavirus 19, PCR Not Detected (NotDetected); Influenza A, PCR Not Detected (NotDetected); Influenza B, PCR Not Detected (NotDetected)
[2023-12-09 18:07] LABS: Lactate Venous 2.2 mmol/L (0.4-2.0); VBG Base Excess 4.8 mmol/L (-2.4-2.3); VBG HCO3 30.2 mmol/L (23-30); VBG Oxygen Saturation 64.2 % (50-70); VBG PH 7.37 mmol/L (7.31-7.41); VBG PO2 37.5 mmol/L (28-40); VBG Total CO2 31.8 mmol/L (23-27)
[2023-12-09] MEDS: VANCOMYCIN/WATER FOR INJ (PEG) 1.25 GM/250 ML PIGGYBACK IV (18:18)
[2023-12-09] MEDS: IOPAMIDOL-370 (76%);100ML BOTTLE 75 ML IV (18:19)
[2023-12-09] MEDS: SODIUM CHLORIDE 0.9% 10ML SYR (RAD ONLY) 10 ML IV (18:19)
[2023-12-09 18:28] VITALS: BP 130/71; PULSE 88; O2SAT 100
[2023-12-09 18:30] VITALS: BP 134/68; PULSE 91; O2SAT 100
[2023-12-09 18:33] LABS: Microscopic, Urine URINE MICROSCOPIC (MICROSCOPIC)
[2023-12-09 18:34] LABS: Appearance,Urine CLEAR (Clear); Bilirubin,Urine Negative (Negative); Blood, Urine TRACE-I (Negative); Color,Urine YELLOW (Yellow); Glucose,Urine (UA) 2+ (Negative); Ketones,Urine Negative (Negative); Leukocyte Esterase,Urine TRACE (Negative); Nitrate,Urine POSITIVE (Negative); Protein,Urine TRACE (Negative); Specific Gravity, Urine 1.015 (1.005-1.030); Urobilinogen,Urine 0.2 EU/dl (0.2)
[2023-12-09 18:43] LABS: Bacteria,Urine 4+ /lpf; WBC,Urine TNTC #/hpf (0-3)
--- NOTE | 2023-12-09 19:55 | P.HP_ITS ---
History of Present Illness *Admission Date: 12/09/23 *Reason for visit:: failure to thrive *History of present illness: Mr. Walls is a 73-year-old male who resides [facility]. Was recently found to have elevated glucoses in the 500s. On recheck, consistently elevated today. Was reportedly taken off insulin recently during a prolonged stay at either or [facility]. It is unclear exactly which facility however a review of patient's chart in [facility] for does not show a recent visit. He presented from his nursing facility due to elevated glucose. On arrival to the ER, patient found to be nonverbal, having oral thrush, numerous severe nonhealing ulcers, elevated temp of 99.4 and elevated glucose on labs. Labs also consistent with significant inflammatory marker elevation, worsening anemia. CT abdomen pelvis obtained showing ulceration of left hip with question able osteomyelitis. Undermining of ulceration. Normal white count. Given his severe deconditioning, worsening state, and progressing malnutrition and wounds, medicine was consulted for admission and further management. On arrival to the floor, patient is hemodynamically stable. Afebrile. Tries to answer questions but answers only yes/no. Cooperative on exam. On room air. Patient cachectic with sarcopenia and significant ulceration on bilateral hips, sacrum, feet. Strong concern for failure to thrive and malnutrition. [facility] Disclaimer: The information contained in this section may have been updated after the patient was seen, as this information can be updated by other users. Medical History Dysphagia Decubital ulcer Dysphagia Cognitive impairment Abnormal abdominal CT scan [place] catheter in place FTT (failure to thrive) in adult Malnutrition HLD (hyperlipidemia) HTN (hypertension) Diabetes mellitus Urinary retention Cognitive decline Agitation Communication deficit SERINA (acute kidney injury) Anxiety and depression Insomnia CVA (cerebral vascular accident) Surgical History S/P percutaneous endoscopic gastrostomy (PEG) tube placement Social History Smoking Status: Unknown if ever smoked alcohol intake: former year quit: unkn current occupational status: disabled Travel in the last 8 weeks: None Other Medical History Have you received the Pneumonia Vaccine: Yes Review of Systems Review of Systems Review of systems:: unable to obtain Review of systems (narrative): Reviewed from chart Meds Home Medications and Allergies Home Medications ?Medication ?Instructions ?Recorded ?Confirmed ?Type acetaminophen 500 mg tablet 500 mg PO Q6H PRN fever or pain 07/26/23 12/08/23 Rx (Tylenol Extra Strength) #90 tabs ibuprofen 600 mg tablet 600 mg PO Q6H PRN fever or pain 07/26/23 12/08/23 Rx #120 tabs lactulose 20 gram/30 mL oral 20 g (30 mL) PO DAILY PRN 07/26/23 12/08/23 Rx solution constipation #3,000 mL lansoprazole 15 mg capsule,delayed 15 mg PO QAM #90 caps 07/26/23 12/08/23 Rx release loperamide 2 mg capsule (Imodium 2 mg PO Q6H PRN loose stool #30 07/26/23 12/08/23 Rx A-D) caps ondansetron HCl 4 mg tablet 4 mg PO Q6H PRN nausea and 07/26/23 12/08/23 Rx vomiting #30 tabs quetiapine 25 mg tablet (Seroquel) 75 mg (3 x 25 mg) PO BID #180 tabs 07/26/23 12/08/23 Rx terazosin 2 mg capsule 2 mg PO HS #90 caps 07/26/23 12/08/23 Rx lorazepam 0.5 mg tablet 0.5 mg PO BID #60 tabs 08/04/23 12/08/23 Rx oxycodone 5 mg tablet 5 mg PO Q6H pain #120 tabs 12/08/23 Rx New Prescriptions to Start Prescriptions: Allergies Allergy/AdvReac Type Severity Reaction Status Date / Time simvastatin AdvReac muscle Verified 12/08/23 10:16 aches Exam Data for Last 24 hours Vital signs and Labs for Last 24 Hours: Temp Pulse Resp BP Pulse Ox O2 Del Method 99.6 F 91 H 14 134/68 100 Room Air 12/09/23 16:54 12/09/23 18:30 12/09/23 16:54 12/09/23 18:30 12/09/23 18:30 12/09/23 18:30 Laboratory Results - last 24 hr 12/09/23 16:45: WBC 8.3, RBC 2.92 L, Hgb 8.5 L, Hct 28.0 L, MCV 95.9 H, MCH 29.0, MCHC 30.3 L, RDW 14.0, Plt Count 525 H, MPV 8.2, Neut % (Auto) 80.6 H, Lymph % (Auto) 15.7, Jay % (Auto) 2.5, Eos % (Auto) 0.9, Baso % (Auto) 0.3, Neut # (Auto) 6.7, Lymph # (Auto) 1.3, Jay # (Auto) 0.2, Eos # (Auto) 0.1, Baso # (Auto) 0.0, Sodium 146 H, Potassium 3.8, Chloride 108 H, Carbon Dioxide 37 H, Anion Gap 4.8 L, BUN 33 H, Creatinine 0.60 L, Estimated Creat Clear 59, Estimated GFR 133, Est GFR ( Amer) 161, Glucose 462 H*, Calcium 8.6, Phosphorus 3.4, Magnesium 2.1, Total Bilirubin 0.2, AST 60 H, ALT 162 H, Alkaline Phosphatase 201 H, C-Reactive Protein 154.0 H, Total Protein 6.5, Albumin 2.6 L, Globulin 3.9 H, Albumin/Globulin Ratio 0.7 L 12/09/23 17:05: VBG pH 7.37, VBG pCO2 54.0 H, VBG pO2 37.5, VBG HCO3 30.2 H, VBG Total CO2 31.8 H, VBG O2 Saturation 64.2, VBG Base Excess 4.8 H, VBG Lactic Acid 2.2 H 12/09/23 17:29: SARS-CoV-2 (PCR) Not detected, Influenza A Untype (PCR) Not detected, Influenza Type B (PCR) Not detected 12/09/23 18:24: Urine Color Yellow, Urine Appearance Clear, Urine pH 7.0, Ur Specific [place] 1.015, Urine Protein Trace, Urine Glucose (UA) 2+, Urine Ketones Negative, Urine Blood Trace-i, Urine Nitrate Positive, Urine Bilirubin Negative, Urine Urobilinogen 0.2, Ur Leukocyte Esterase Trace, Urine RBC 3-5, Urine WBC Tntc, Ur Squamous Epith Cells 5-10, Urine Bacteria 4+ I & O for Last 24 hours: Intake & Output 12/06/23 12/07/23 12/08/23 12/09/23 23:59 23:59 23:59 23:59 Weight 61.235 kg Constitutional Constitutional: mild distress, cachectic, chronically ill appearing, disheveled and cooperative *Routine HEENT Exam Head: Present normocephalic and atraumatic Eye: Present EOMI and PERRL ENT: Present mucous membranes moist Comments: Severe oral thrush, bitemporal wasting, loss of periorbital fat *Routine Neck Exam Neck: Present supple *Routine Respiratory Exam Respiratory: Present CTA bilaterally; Absent rhonchi, stridor, wheezes or crackles *Routine Cardiovascular Exam Cardiovascular: Present RRR *Routine Abdominal Exam Abdominal: Present soft and normoactive bowel sounds Comments: Scaphoid abdomen, G-tube in place, stoma clean dry and intact. No erythema *Routine Rectal Exam Rectal:: no hemorrhoids *Routine Genitalia Exam Genitalia:: normal male *Routine Extremities Exam Extremities: Absent edema Comments: Sarcopenia *Routine Skin Exam Skin: Present lesions and wounds Comments: Eschars on medial aspect of right foot, numerous stage I and II wounds to bilateral feet. Sacral unstageable decubitus wound with eschar in place approximately 3 cm in diameter; right hip with larger 4 cm stage II decubitus wound over trochanter. Left-sided stage IV decubitus wound with exposed bone and undermining over left hip *Routine Neurological Exam Neurological: Present alert Comments: Unable to assess orientation; dependent for all ADLs. Functional quadriplegia Assessment and Plan *Assessment and plan (1) Catheter-associated urinary tract infection: Status: Acute Category: Medical Code(s): T83.511A - Infection and inflammatory reaction due to indwelling urethral catheter, initial encounter; N39.0 - Urinary tract infection, site not specified (2) Hyperglycemia: Status: Acute Category: Medical Code(s): R73.9 - Hyperglycemia, unspecified (3) Infected decubitus ulcer: Status: Acute Category: Medical Code(s): L89.90 - Pressure ulcer of unspecified site, unspecified stage; L08.9 - Local infection of the skin and subcutaneous tissue, unspecified (4) Acute anemia: Status: Acute Category: Medical Code(s): D64.9 - Anemia, unspecified (5) FTT (failure to thrive) in adult: Status: Acute Category: Medical Code(s): R62.7 - Adult failure to thrive (6) S/P percutaneous endoscopic gastrostomy (PEG) tube placement: Status: Acute Category: Surgical Code(s): Z93.1 - Gastrostomy status (7) Gastrostomy tube dependent: Status: Acute Category: Medical Code(s): Z93.1 - Gastrostomy status (8) Diabetes mellitus: Status: Acute Category: Medical Code(s): E11.9 - Type 2 diabetes mellitus without complications (9) Severe protein-calorie malnutrition: Status: Acute Category: Medical Code(s): E43 - Unspecified severe protein-calorie malnutrition (10) Functional quadriplegia: Status: Acute Category: Medical Code(s): R53.2 - Functional quadriplegia (11) Oral thrush: Status: Acute Category: Medical Code(s): B37.0 - Candidal stomatitis (12) Decubitus ulcer of left hip, stage 4: Status: Acute Category: Medical Code(s): L89.224 - Pressure ulcer of left hip, stage 4 (13) Decubitus ulcer of right hip, stage 2: Status: Acute Category: Medical Code(s): L89.212 - Pressure ulcer of right hip, stage 2 (14) Decubitus ulcer of sacral region, unstageable: Status: Acute Category: Medical Code(s): L89.150 - Pressure ulcer of sacral region, unstageable Plan 73-year-old male with severe debility, failure to thrive, malnutrition, numerous decubitus wounds, deficits as residual effect of CVA. Presented for hy perglycemia. Found to have worsening anemia and suspected catheter associated UTI. Discussed case with ER physician, request admission for IV antibiotics and further goals of care discussions. Patient is a coto of the formerly [facility]. I agreed to admit for further management. Initially received vancomycin and Zosyn in the ER. Given his status at a alf and risk for resistant pathogens, will broaden antibiotic coverage to vancomycin and meropenem for ESBL coverage. Necessitating inpatient management. Problems addressed as follows: Catheter associated UTI -Long-term indwelling catheter for urinary retention. Catheter removed in the ER. Replaced after arriving to the floor. - White count normal at 8.3 however neutrophil predominance of 80%. Urine grossly abnormal with positive nitrites, trace leuk esterase, white cells too numerous to count and 4+ bacteria. -Urine culture and blood cultures pending -Continue vancomycin and meropenem. Meropenem 1 g every 8 hours. Monitor for toxicity. -Repeat CBC, CMP, magnesium ordered for the morning. -Repeat procalcitonin, CRP ordered for the morning -CRP elevated at 154 likely secondary to UTI along with decubitus wounds Per my review of chest imaging and abdominal CT, no concern for pneumonia or intra-abdominal infection. Decubitus wounds prominent with some undermining. In conjunction with exam, low concern for necrotizing fasciitis of left decubitus wound. Suspect undermining and worsening progression. Normal white count makes nec fasc less likely. Will monitor closely daily. Hyperglycemia Diabetes -A1c pending, sliding scale insulin with fingersticks every 6 hours -TSH for screening purposes ordered -Glucose severely elevated on presentation of 400. Consistent with diabetes. Unclear as to why diabetes was removed from his diagnoses on returning back to alf and why insulin was discontinued Multiple decubitus ulcers -Wound consulted -Patient is not a good candidate for debridement or surgical intervention, will manage left stage IV ulcer with wet-to-dry Betadine dressing until wound able to evaluate -Nursing placing padding over wounds. -Antibiotics as above Thrush: Diflucan 200 mg once per tube. Will continue nystatin oral solution 4 times a day with oral care, will administer orally to swish and then suction to remove given patient's n.p.o. status -Consider continuing Diflucan per tube for 14-day course given antibiotic administration. Reevaluate in the morning. Anemia -Acute on chronic;Hemoglobin 12.8 4 months ago, 8.5 today. No sign of active bleeding. Suspect slow loss from wounds versus malnutrition versus chronic disease. Transfusion threshold hemoglobin less than 7 History of CVA complicates all aspects of his care, he is a functional quadriplegic as a result of his history of CVA. Dependent on nursing for all ADLs Severe protein calorie malnutrition Failure to thrive Cachexia - Nutrition consulted to assist with supplementation. - Resuming tube feeds, on Jevity 1.5. Will administer Jevity 1.2 as we do not have 1.5 in-house at this time. Will work on adjustment after nutrition consult DNR Resume tube feed [place] of the state, guardian June Chu number in chart Given patient's overall functional status, nutritional deficiency, decubitus wounds, functional decline, malnutrition, have strong concern about patient's current condition. It is my opinion that given his overall condition, life- prolonging measures are inappropriate. I have strong concern that patient's condition will only continue to decline. In his current state with malnutrition, nonhealing wounds, total dependence on others for care, life- prolonging measures are borderline unethical. Feel patient would benefit from transitioning care from treatment/curative to comfort. Would recommend given his current state that hospice be consulted for further care and management. Attempted to contact patient's state guardian, unfortunately is after hours. Will reattempt in the morning to have further goals of care discussion.
--- NOTE | 2023-12-09 19:57 | PC.NURSE ---
report called to [facility]
[2023-12-09 20:00] VITALS: BP 150/81; PULSE 93; RESP 18; TEMP 36.9; O2SAT 100; BMI 17.8
[2023-12-09 20:05] VITALS: BP 150/71; PULSE 65; RESP 18; TEMP 37.6; O2SAT 97
[2023-12-09 22:07] LABS: Reflex Lactic Add Lactic Reflex
[2023-12-09] MEDS: FLUCONAZOLE 200MG TABLET 200 MG PO (22:23)
[2023-12-09] MEDS: NYSTATIN SUSP 500,000 UNITS/5ML UDC 500000 UNIT PO (22:23)
[2023-12-09] MEDS: MEROPENEM 1 GM in 0.9 % SODIUM CHLORIDE 100 ML IV (22:24)
[2023-12-09 22:51] LABS: POC Glucose,Bedside 243 (70-110)
[2023-12-09 23:02] LABS: Lactic Acid Follow Up (RFLX 1) 1.9 mmol/L (0.7-2.1)
[2023-12-09] MEDS: OXYCODONE 5MG IMMEDIATE RELEASE TABLET 5 MG PO (23:13)
[2023-12-10 00:14] LABS: HIV (1&2) Antibody Rapid NONREACTIVE (NONREACTIVE)
--- NOTE | 2023-12-10 01:06 | PC.WOUNDNOTE ---
Left toe right hip multiple unstagable open ulcers to bilateral lower extremities right ankle right great toe and right foot right lower leg coccyx left hip depth of left hip ulcer
[2023-12-10 03:52] VITALS: BP 152/73; PULSE 103; RESP 18; TEMP 36.9; O2SAT 99
[2023-12-10 04:00] VITALS: BMI 17.8
[2023-12-10] MEDS: OXYCODONE 5MG IMMEDIATE RELEASE TABLET 5 MG PO ×3 (04:59→22:29)
[2023-12-10] MEDS: MEROPENEM 1 GM in 0.9 % SODIUM CHLORIDE 100 ML IV ×3 (04:59→20:58)
[2023-12-10] MEDS: humaLOG 100 UNITS/ML 10ML VIAL (SSI) SQ ×2 (05:27→10:44)
[2023-12-10 06:10] VITALS: TEMP 38.8
[2023-12-10] MEDS: ACETAMINOPHEN 325MG TAB 650 MG PO ×2 (06:15→21:01)
[2023-12-10] MEDS: VANCOMYCIN HCL 750 MG in 0.9 % SODIUM CHLORIDE 250 ML 125 MG IV (06:28)
--- NOTE | 2023-12-10 06:53 | PC.NURSE ---
Pt is alert to self at times. Pt answers yes and no questions for the most part and responds to his name. Pt is currently on levity 1.2 kwabena @ 60ml/hr. Pt is tolerating feed well and residual noted Q4. Pt has numerous open pressure wound to his hips and lower extremities. wounds were dressed per MD order. Pt has been turned Q1 this shft. Pt did run a fever of 101.9 and was treated per MAY. Pt has shown signs of pain and moaning and grunting in pain. Pt has been treated per MAY. 16 F salmon placed. Pt morning glucose level ws 394 and was given insulin.
[2023-12-10 06:56] LABS: POC Glucose,Bedside 394 (70-110)
[2023-12-10 08:00] VITALS: BP 141/67; PULSE 87; RESP 17; TEMP 37.2; O2SAT 98
--- NOTE | 2023-12-10 08:09 | P.CONPHA_ITS ---
Pharmacy Consult Date: 12/10/23 Time: 08:09 Referring provider: DR. TEIXEIRA Reason for Consult:: VANCOMYCIN DOSING Allergies Allergy/AdvReac Type Severity Reaction Status Date / Time simvastatin AdvReac muscle Verified 12/08/23 10:16 aches Home Medications ?Medication ?Instructions ?Recorded ?Confirmed ?Type acetaminophen 500 mg tablet 500 mg PO Q6H PRN fever or pain 07/26/23 12/10/23 Rx (Tylenol Extra Strength) #90 tabs ibuprofen 600 mg tablet 600 mg PO Q6H PRN fever or pain 07/26/23 12/10/23 Rx #120 tabs lactulose 20 gram/30 mL oral 20 g (30 mL) PO DAILY PRN 07/26/23 12/10/23 Rx solution constipation #3,000 mL loperamide 2 mg capsule (Imodium 2 mg PO Q6H PRN loose stool #30 07/26/23 12/10/23 Rx A-D) caps ondansetron HCl 4 mg tablet 4 mg PO Q6H PRN nausea and 07/26/23 12/10/23 Rx vomiting #30 tabs quetiapine 25 mg tablet (Seroquel) 75 mg (3 x 25 mg) PO BID #180 tabs 07/26/23 12/08/23 Rx terazosin 2 mg capsule 2 mg PO HS #90 caps 07/26/23 12/10/23 Rx lorazepam 0.5 mg tablet 0.5 mg PO BID #60 tabs 08/04/23 12/10/23 Rx oxycodone 5 mg tablet 5 mg PO Q6H pain #120 tabs 12/08/23 12/10/23 Rx lansoprazole 15 mg capsule,delayed 15 mg PO BID 12/10/23 12/10/23 History release New Prescriptions to Start Prescriptions: Height: 1.8 m Weight: 57.72 kg Laboratory Results:: Laboratory Results - last 24 hr 12/09/23 16:45: WBC 8.3, RBC 2.92 L, Hgb 8.5 L, Hct 28.0 L, MCV 95.9 H, MCH 29.0, MCHC 30.3 L, RDW 14.0, Plt Count 525 H, MPV 8.2, Neut % (Auto) 80.6 H, Lymph % (Auto) 15.7, [place] % (Auto) 2.5, Eos % (Auto) 0.9, Baso % (Auto) 0.3, Neut # (Auto) 6.7, Lymph # (Auto) 1.3, [place] # (Auto) 0.2, Eos # (Auto) 0.1, Baso # (Auto) 0.0, Sodium 146 H, Potassium 3.8, Chloride 108 H, Carbon Dioxide 37 H, Anion Gap 4.8 L, BUN 33 H, Creatinine 0.60 L, Estimated Creat Clear 59, Estimated GFR 133, Est GFR ( Amer) 161, Glucose 462 H*, Calcium 8.6, Phosphorus 3.4, Magnesium 2.1, Total Bilirubin 0.2, AST 60 H, ALT 162 H, Alkaline Phosphatase 201 H, C-Reactive Protein 154.0 H, Total Protein 6.5, Albumin 2.6 L, Globulin 3.9 H, Albumin/Globulin Ratio 0.7 L 12/09/23 17:05: VBG pH 7.37, VBG pCO2 54.0 H, VBG pO2 37.5, VBG HCO3 30.2 H, VBG Total CO2 31.8 H, VBG O2 Saturation 64.2, VBG Base Excess 4.8 H, VBG Lactic Acid 2.2 H 12/09/23 17:29: SARS-CoV-2 (PCR) Not detected, Influenza A Untype (PCR) Not detected, Influenza Type B (PCR) Not detected 12/09/23 18:24: Urine Color Yellow, Urine Appearance Clear, Urine pH 7.0, Ur Specific [place] 1.015, Urine Protein Trace, Urine Glucose (UA) 2+, Urine Ketones Negative, Urine Blood Trace-i, Urine Nitrate Positive, Urine Bilirubin Negative, Urine Urobilinogen 0.2, Ur Leukocyte Esterase Trace, Urine RBC 3-5, Urine WBC Tntc, Ur Squamous Epith Cells 5-10, Urine Bacteria 4+ 12/09/23 22:35: POC Glucose 243 H, Lactate 1.9, HIV 1&2 Antibody Rapid Nonreactive 12/10/23 05:26: POC Glucose 394 H* Medical History: Medical History (Updated 12/09/23 @ 22:44 by Silvino Teixeira MD) Dysphagia Decubital ulcer Dysphagia Cognitive impairment Abnormal abdominal CT scan [place] catheter in place FTT (failure to thrive) in adult Malnutrition HLD (hyperlipidemia) HTN (hypertension) Diabetes mellitus Urinary retention Cognitive decline Agitation Communication deficit SERINA (acute kidney injury) Anxiety and depression Insomnia CVA (cerebral vascular accident) Assessment and Plan Assessment and plan all Dx Assessment and Plan for all problems:: Pharmacokinetic dosing service Objective: Patient: Floor: Age: 73 yo Serum creatinine: 1 mg/dL Height: 70.9 Inches Weight (kg): 57.72 Assessment: IBW (kg): 75.07 Dosing wt(kg): 57.72 Estimated Creatinine clearance (ml/min): 55.3 CRCL method: Cockcroft and Gault using ibw(default). Drug selected: Vancomycin Loading dose (mg): 0 Vd (liters): 46.2 (factor used: 0.8 L/kg) Eyad (hr-1): 0.050 Half life (hrs): 13.86 Recommended dose: 1000 mg Interval: 18 hrs Infusion time (hrs): 2.0 Predicted peak (mcg/mL): 34.7 Predicted trough (mcg/mL): 15.59 Total body weight is being used for vancomycin dosing. Recommendations: Give Vancomycin 1000 mg q 18 hrs with an expected Cpeak of 34.7 mcg/ml and an expected Ctrough of 15.59 mcg/ml ----Vanco only - ignore for aminoglycosides----- CLvanco= 2.31 L/hr AUC 0-24 /KARIN Data: KARIN 0.5 mcg/mL: AUC/KARIN: 1154.4 KARIN 1.0 mcg/mL: AUC/KARIN: 577.2 --------- KARIN 1.5 mcg/mL: AUC/KARIN: 384.8 KARIN 2.0 mcg/mL: AUC/KARIN: 288.6
[2023-12-10] MEDS: QUETIAPINE 25MG TABLET 75 MG PO ×2 (10:02→20:59)
[2023-12-10] MEDS: LORazepam 0.5MG TABLET 0.5 MG PO ×2 (10:03→20:59)
[2023-12-10] MEDS: NYSTATIN SUSP 500,000 UNITS/5ML UDC 500000 UNIT PO ×3 (10:26→20:58)
[2023-12-10 10:44] LABS: POC Glucose,Bedside 220 (70-110)
[2023-12-10 14:06] LABS: Basophils # 0.1 K/mm3 (0-0.2); Basophils % 0.5 % (0.1-2.0); Eosinophils # 0.1 K/mm3 (0.0-0.4); Eosinophils % 0.4 % (0.1-12.0); Hematocrit 27.2 % (42.0-52.0); Hemoglobin 8.5 g/dL (14.1-18.0); Mean Corpuscular HGB Conc 31.2 g/dL (31.8-35.4); Mean Corpuscular Hemoglobin 29.3 pg (27.0-31.2); Mean Corpuscular Volume 94.1 fl (80-94); Mean Platelet Volume 8.3 fl (7.4-10.4); Monocytes # 0.7 K/mm3 (0.1-1.0); Monocytes % 4.9 % (1.7-9.3); Neutrophils # 10.7 K/mm3 (1.8-7.8); Neutrophils % 79.2 % (37.0-80.0); Platelet Count 448 K/mm3 (142-424); Red Blood Count 2.89 M/mm3 (4.60-6.20); Red Cell Distribution Width 14.3 % (11.5-17.5); White Blood Count 13.5 K/mm3 (4.8-10.8)
[2023-12-10 15:17] VITALS: BMI 17.8
[2023-12-10 15:25] LABS: Alanine Aminotransferase 134 U/L (12-78); Albumin Level 2.6 g/dl (3.5-5.0); Albumin/Globulin Ratio 0.7 (1.1-1.8); Alkaline Phosphatase 147 U/L (38-126); Anion Gap 5.7 mEq/L (5-15); Aspartate Amino Transferase 52 U/L (17-59); Bilirubin,Total 0.3 mg/dl (0.2-1.3); Blood Urea Nitrogen 28 mg/dl (9-20); Calcium 8.4 mg/dl (8.4-10.2); Carbon Dioxide 33 mmol/L (22.0-30.0); Chloride 110 mmol/L (98-107); Creatinine Clearance Estimated 55 mL/min (50-200); Estimated Glomerular Filt Rate 164 ml/min (>60); GFR (African American) 198 ML/MIN (>60); Globulin 3.8 g/dL (1.3-3.2); Glucose 144 mg/dl (74-100); Potassium 3.7 mmoL/L (3.5-5.1); Sodium 145 mmol/L (136-145); Total Protein,Serum 6.4 g/dl (6.3-8.2)
[2023-12-10 15:30] LABS: C-Reactive Protein 210.6 mg/L (0-4)
[2023-12-10 15:42] LABS: Procalcitonin 0.442 ng/mL (0.0-2.0)
[2023-12-10 15:56] LABS: Thyroid Stimulating Hormone 2.91 uIU/mL (0.465-4.68)
[2023-12-10 16:00] VITALS: BP 137/74; PULSE 118; RESP 16; TEMP 37.3; O2SAT 99
--- NOTE | 2023-12-10 17:58 | PC.NURSE ---
patients blood sugar at 1740 was 54, notified. gave patient sugar water through G tube.
--- NOTE | 2023-12-10 18:21 | EXP.PN ---
Subjective *Date: 12/10/23 *Time: 18:21 Interval history: Patient lying in bed without acute distress. Response to questions with yes or no. Exam Data for Last 24 hours Vital signs and Labs for Last 24 Hours: Temp Pulse Resp BP Pulse Ox O2 Del Method 99.2 F 118 H 16 137/74 99 Room Air 12/10/23 16:00 12/10/23 16:00 12/10/23 16:00 12/10/23 16:00 12/10/23 16:00 12/10/23 17:00 Laboratory Results - last 24 hr 12/09/23 17:29: SARS-CoV-2 (PCR) Not detected, Influenza A Untype (PCR) Not detected, Influenza Type B (PCR) Not detected 12/09/23 18:24: Urine Color Yellow, Urine Appearance Clear, Urine pH 7.0, Ur Specific [place] 1.015, Urine Protein Trace, Urine Glucose (UA) 2+, Urine Ketones Negative, Urine Blood Trace-i, Urine Nitrate Positive, Urine Bilirubin Negative, Urine Urobilinogen 0.2, Ur Leukocyte Esterase Trace, Urine RBC 3-5, Urine WBC Tntc, Ur Squamous Epith Cells 5-10, Urine Bacteria 4+ 12/09/23 22:35: POC Glucose 243 H, Lactate 1.9, HIV 1&2 Antibody Rapid Nonreactive 12/10/23 05:26: POC Glucose 394 H* 12/10/23 10:29: POC Glucose 220 H 12/10/23 13:20: WBC 13.5 H D, RBC 2.89 L, Hgb 8.5 L, Hct 27.2 L, MCV 94.1 H, MCH 29.3, MCHC 31.2 L, RDW 14.3, Plt Count 448 H, MPV 8.3, Neut % (Auto) 79.2, Lymph % (Auto) 15.0, [place] % (Auto) 4.9, Eos % (Auto) 0.4, Baso % (Auto) 0.5, Neut # (Auto) 10.7 H, Lymph # (Auto) 2.0, [place] # (Auto) 0.7, Eos # (Auto) 0.1, Baso # (Auto) 0.1, Sodium 145, Potassium 3.7, Chloride 110 H, Carbon Dioxide 33 H, Anion Gap 5.7, BUN 28 H, Creatinine 0.50 L, Estimated Creat Clear 55, Estimated GFR 164, Est GFR ( Amer) 198 D, Glucose 144 H D, Calcium 8.4, Magnesium 2.0, Total Bilirubin 0.3, AST 52, ALT 134 H, Alkaline Phosphatase 147 H, C-Reactive Protein 210.6 H, Total Protein 6.4, Albumin 2.6 L, Globulin 3.8 H, Albumin/Globulin Ratio 0.7 L, Procalcitonin 0.442, TSH 2.91 I & O for Last 24 hours: Intake & Output 12/07/23 12/08/23 12/09/23 12/10/23 23:59 23:59 23:59 23:59 Intake Total 525 / 525 Output Total 350 / 350 Balance 175 / 175 Weight 57.72 kg 57.72 kg Microbiology Reports for the Last 24 Hours: Microbiology 12/09/23 17:53 Blood Blood Culture - Preliminary 12/09/23 17:53 Blood Blood Culture - Preliminary 12/09/23 18:24 Buttock Gram Stain - Final 12/09/23 18:24 Buttock Wound Culture - Preliminary Gram Negative Rods 12/09/23 18:24 Urine,Clean Catch Urine Culture - Preliminary Constitutional Comments: Constitutional Constitutional: mild distress, cachectic, chronically ill appearing, disheveled and cooperative *Routine HEENT Exam Head: Present normocephalic and atraumatic Eye: Present EOMI and PERRL ENT: Present mucous membranes moist Comments: Severe oral thrush, bitemporal wasting, loss of periorbital fat *Routine Neck Exam Neck: Present supple *Routine Respiratory Exam Respiratory: Present CTA bilaterally; Absent rhonchi, stridor, wheezes or crackles *Routine Cardiovascular Exam Cardiovascular: Present RRR *Routine Abdominal Exam Abdominal: Present soft and normoactive bowel sounds Comments: Scaphoid abdomen, G-tube in place, stoma clean dry and intact. No erythema *Routine Rectal Exam Rectal:: no hemorrhoids *Routine Genitalia Exam Genitalia:: normal male *Routine Extremities Exam Extremities: Absent edema Comments: Sarcopenia *Routine Skin Exam Skin: Present lesions and wounds Comments: Eschars on medial aspect of right foot, numerous stage I and II wounds to bilateral feet. Sacral unstageable decubitus wound with eschar in place approximately 3 cm in diameter; right hip with larger 4 cm stage II decubitus wound over trochanter. Left-sided stage IV decubitus wound with exposed bone and undermining over left hip *Routine Neurological Exam Neurological: Present alert Comments: Unable to assess orientation; dependent for all ADLs. Functional quadriplegia Assessment and Plan *Assessment and plan (1) Catheter-associated urinary tract infection: Status: Acute Category: Medical Code(s): T83.511A - Infection and inflammatory reaction due to indwelling urethral catheter, initial encounter; N39.0 - Urinary tract infection, site not specified (2) Hyperglycemia: Status: Acute Category: Medical Code(s): R73.9 - Hyperglycemia, unspecified (3) Infected decubitus ulcer: Status: Acute Category: Medical Code(s): L89.90 - Pressure ulcer of unspecified site, unspecified stage; L08.9 - Local infection of the skin and subcutaneous tissue, unspecified (4) Acute anemia: Status: Acute Category: Medical Code(s): D64.9 - Anemia, unspecified (5) FTT (failure to thrive) in adult: Status: Acute Category: Medical Code(s): R62.7 - Adult failure to thrive (6) S/P percutaneous endoscopic gastrostomy (PEG) tube placement: Status: Acute Category: Surgical Code(s): Z93.1 - Gastrostomy status (7) Gastrostomy tube dependent: Status: Acute Category: Medical Code(s): Z93.1 - Gastrostomy status (8) Diabetes mellitus: Status: Acute Category: Medical Code(s): E11.9 - Type 2 diabetes mellitus without complications (9) Severe protein-calorie malnutrition: Status: Acute Category: Medical Code(s): E43 - Unspecified severe protein-calorie malnutrition (10) Functional quadriplegia: Status: Acute Category: Medical Code(s): R53.2 - Functional quadriplegia (11) Oral thrush: Status: Acute Category: Medical Code(s): B37.0 - Candidal stomatitis (12) Decubitus ulcer of left hip, stage 4: Status: Acute Category: Medical Code(s): L89.224 - Pressure ulcer of left hip, stage 4 (13) Decubitus ulcer of right hip, stage 2: Status: Acute Category: Medical Code(s): L89.212 - Pressure ulcer of right hip, stage 2 (14) Decubitus ulcer of sacral region, unstageable: Status: Acute Category: Medical Code(s): L89.150 - Pressure ulcer of sacral region, unstageable Plan 73-year-old male with severe debility, failure to thrive, malnutrition, numerous decubitus wounds, deficits as residual effect of CVA. Presented for hyperglycemia. Found to have worsening anemia and suspected catheter associated UTI. Discussed case with ER physician, request admission for IV antibiotics and further goals of care discussions. Patient is a [facility] of the [facility]. I agreed to admit for further management. Initially received vancomycin and Zosyn in the ER. Given his status at a longterm and risk for resistant pathogens, will broaden antibiotic coverage to vancomycin and meropenem for ESBL coverage. Necessitating inpatient management. Problems addressed as follows: Given patient's overall functional status, nutritional deficiency, decubitus wounds, functional decline, malnutrition, have strong concern about patient's current condition. I agree with Dr. Wheeler's opinion that given his overall condition, life-prolonging measures are inappropriate. I have strong concern that patient's condition will only continue to decline. In his current state with malnutrition, nonhealing wounds, total dependence on others for care, life-prolonging measures are borderline unethical. Feel patient would benefit from transitioning care from treatment/curative to comfort. Would recommend given his current state that hospice be consulted for further care and management. Attempted to contact patient's state guardian today, however unavailable during the weekend and on-call number available. Will try again Tuesday. Case management consulted. Catheter associated UTI -Long-term indwelling catheter for urinary retention. Catheter removed in the ER. Replaced after arriving to the floor. - White count normal at 8.3 however neutrophil predominance of 80%. Urine grossly abnormal with positive nitrites, trace leuk esterase, white cells too numerous to count and 4+ bacteria. -Urine culture and blood cultures pending -Continue vancomycin and meropenem. Meropenem 1 g every 8 hours. Monitor for toxicity. -Follow-up daily CBC, CMP. -Follow-up procalcitonin, CRP ordered for the morning -CRP elevated at 154 likely secondary to UTI along with decubitus wounds Per my review of chest imaging and abdominal CT, no concern for pneumonia or intra-abdominal infection. Decubitus wounds prominent with some undermining. In conjunction with exam, low concern for necrotizing fasciitis of left decubitus wound. Suspect undermining and worsening progression. Normal white count makes nec fasc less likely. Will monitor closely daily. Hyperglycemia Diabetes -A1c pending, sliding scale insulin with fingersticks every 6 hours -TSH for screening purposes ordered -Glucose severely elevated on presentation of 400. Consistent with diabetes. Unclear as to why diabetes was removed from his diagnoses on returning back to longterm and why insulin was discontinued Multiple decubitus ulcers -Wound consulted -Patient is not a good candidate for debridement or surgical intervention, will manage left stage IV ulcer with wet-to-dry Betadine dressing until wound able to evaluate -Nursing placing padding over wounds. -Antibiotics as above Thrush: Diflucan 200 mg once per tube. Will continue nystatin oral solution 4 times a day with oral care, will administer orally to swish and then suction to remove given patient's n.p.o. status -Consider continuing Diflucan per tube for 14-day course given antibiotic administration. Anemia -Acute on chronic;Hemoglobin 12.8 4 months ago, 8.5 on admission. No sign of active bleeding. Suspect slow loss from wounds versus malnutrition versus chronic disease. Transfusion threshold hemoglobin less than 7 ? Hemoglobin stable at 8.5. History of CVA complicates all aspects of his care, he is a functional quadriplegic as a result of his history of CVA. Dependent on nursing for all ADLs Severe protein calorie malnutrition Failure to thrive Cachexia - Nutrition consulted to assist with supplementation. - Resuming tube feeds, on Jevity 1.5. Will administer Jevity 1.2 as we do not have 1.5 in-house at this time. Will work on adjustment after nutrition consult DNR Resume tube feed [place] of the state, guardian June number in chart
[2023-12-10 18:30] LABS: Glucose,Random 71 mg/dL (74-100)
--- NOTE | 2023-12-10 18:40 | PC.NURSE ---
rechecked patients blood glucose at 1806, results are MD Jennifer notified.
--- NOTE | 2023-12-10 18:45 | PC.NURSE ---
changed patient's dressings on wounds this shift.
[2023-12-10 20:00] VITALS: BP 135/61; PULSE 95; RESP 16; TEMP 37.3; O2SAT 100
[2023-12-10] MEDS: VANCOMYCIN HCL 1,000 MG in 0.9 % SODIUM CHLORIDE 250 ML 125 MG IV (20:58)
[2023-12-10] MEDS: TERAZOSIN 1MG CAPSULE 2 MG PO (20:59)
[2023-12-10 21:42] LABS: POC Glucose,Bedside 54 (70-110)
[2023-12-10 21:42] LABS: POC Glucose,Bedside 73 (70-110)
[2023-12-10 22:17] LABS: POC Glucose,Bedside 109 (70-110)
[2023-12-10 23:56] LABS: Hemoglobin A1C 8.8 % (4.0-6.0)
[2023-12-11 04:00] VITALS: BP 133/71; PULSE 89; RESP 16; TEMP 37.9; O2SAT 98; BMI 17.6
--- NOTE | 2023-12-11 04:10 | P.PN_ITS ---
Subjective *Date: 12/11/23 *Time: 08:26 Interval history: Resting comfortably. Alert responsive to exam. Opens eyes spontaneously. Tolerating tube feeds overnight. Afebrile. Stable on room air Medical Exam Vital signs and Labs for Last 24 Hours: Vital Signs Temp Pulse Resp BP Pulse Ox O2 Del Method 12/11/23 01:00 Room Air 12/10/23 23:00 Room Air 12/10/23 21:00 Room Air 12/10/23 20:00 Room Air 12/10/23 20:00 99.1 F 95 H 16 135/61 100 Room Air 12/10/23 18:35 Room Air 12/10/23 17:00 Room Air 12/10/23 16:00 99.2 F 118 H 16 137/74 99 Room Air 12/10/23 15:00 Room Air 12/10/23 13:00 Room Air 12/10/23 11:00 Room Air 12/10/23 09:00 Room Air 12/10/23 08:00 Room Air 12/10/23 08:00 98.9 F 87 17 141/67 H 98 Room Air 12/10/23 06:44 Room Air 12/10/23 06:10 101.9 F H 12/10/23 05:00 Room Air Intake and Output 12/10/23 12/10/23 12/11/23 15:59 23:59 07:59 Intake Total 0 / 2358 1375 / 2358 458 / 458 Output Total 0 / 1000 650 / 1000 Balance 0 / 1358 725 / 1358 458 / 458 Intake: Intake, Oral Amount 0 / 0 0 / 0 Intake, Oral Supplement Amount 0 / 0 0 / 0 Intake, Tube Feeding Amount 575 / 1208 108 / 108 Intake, Tube Irrigant Amount 700 / 700 Intake, Total IV Amount 100 / 450 350 / 350 Meropenem 1 gm In 0.9 % Sodium 100 / 200 100 / 100 Chloride 100 ml @ 100 mls/hr IV Q8H [facility] Rx#:[id number] Vancomycin HCl 1,000 mg In 0.9 250 / 250 % Sodium Chloride 250 ml @ 125 mls/hr IV Q18H [facility] Rx#:[id number] Output: Output, Urine Amount 0 / 1000 650 / 1000 Other: Number of Voids 0 0 Weight 57.72 kg Laboratory Results - last 24 hr 12/09/23 18:24: Urine Color Yellow, Urine Appearance Clear, Urine pH 7.0, Ur Specific [place] 1.015, Urine Protein Trace, Urine Glucose (UA) 2+, Urine Ketone s Negative, Urine Blood Trace-i, Urine Nitrate Positive, Urine Bilirubin Negative, Urine Urobilinogen 0.2, Ur Leukocyte Esterase Trace, Urine RBC 3-5, Urine WBC Tntc, Ur Squamous Epith Cells 5-10, Urine Bacteria 4+ 12/10/23 05:26: POC Glucose 394 H* 12/10/23 10:29: POC Glucose 220 H 12/10/23 13:20: WBC 13.5 H D, RBC 2.89 L, Hgb 8.5 L, Hct 27.2 L, MCV 94.1 H, MCH 29.3, MCHC 31.2 L, RDW 14.3, Plt Count 448 H, MPV 8.3, Neut % (Auto) 79.2, Lymph % (Auto) 15.0, [place] % (Auto) 4.9, Eos % (Auto) 0.4, Baso % (Auto) 0.5, Neut # (Auto) 10.7 H, Lymph # (Auto) 2.0, [place] # (Auto) 0.7, Eos # (Auto) 0.1, Baso # (Auto) 0.1, Sodium 145, Potassium 3.7, Chloride 110 H, Carbon Dioxide 33 H, Anion Gap 5.7, BUN 28 H, Creatinine 0.50 L, Estimated Creat Clear 55, Estimated GFR 164, Est GFR ( Amer) 198 D, Glucose 144 H D, Hemoglobin A1c 8.8 H, Calcium 8.4, Magnesium 2.0, Total Bilirubin 0.3, AST 52, ALT 134 H, Alkaline Phosphatase 147 H, C-Reactive Protein 210.6 H, Total Protein 6.4, Albumin 2.6 L, Globulin 3.8 H, Albumin/Globulin Ratio 0.7 L, Procalcitonin 0.442, TSH 2.91 12/10/23 17:41: POC Glucose 54 L 12/10/23 18:05: Random Glucose 71 L 12/10/23 18:06: POC Glucose 73 12/10/23 19:25: Procalcitonin 0.450 12/10/23 20:58: POC Glucose 109 I & O for Labs for Last 24 Hours: Intake & Output 12/08/23 12/09/23 12/10/23 12/11/23 23:59 23:59 23:59 23:59 Intake Total 1900 / 2358 458 / 458 Output Total 1000 / 1000 Balance 900 / 1358 458 / 458 Weight 57.72 kg 57.72 kg Microbiology Reports for the Last 24 Hours: Microbiology 12/09/23 17:53 Blood Blood Culture - Preliminary 12/09/23 17:53 Blood Blood Culture - Preliminary 12/09/23 18:24 Buttock Gram Stain - Final 12/09/23 18:24 Buttock Wound Culture - Preliminary Gram Negative Rods 12/09/23 18:24 Urine,Clean Catch Urine Culture - Preliminary Constitutional: Present no acute distress, cachectic and chronically ill appearing Head: Present atraumatic and normocephalic ENT: Present normal exam Comment:: Improvement in thrush orally. Bilateral loss of periorbital fat, bitemporal wasting Respiratory: Present normal respiratory effort; Absent respiratory distress, rhonchi, stridor, wheezes or crackles Cardiac: Present Reg Rate and Rhythm GI: Present soft and normal bowel sounds; Absent distention or tenderness Comments:: PEG tube in place Extremities: Present normal inspection and full ROM Skin: Present intact; Absent erythema Comment:: Decubitus wounds covered with bandages this morning. Neuro: Present Grossly Intact, alert and moves all extremities Assessment and Plan *Assessment and plan (1) Catheter-associated urinary tract infection: Status: Acute Category: Medical Code(s): T83.511A - Infection and inflammatory reaction due to indwelling urethral catheter, initial encounter; N39.0 - Urinary tract infection, site not specified (2) Hyperglycemia: Status: Acute Category: Medical Code(s): R73.9 - Hyperglycemia, unspecified (3) Infected decubitus ulcer: Status: Acute Category: Medical Code(s): L89.90 - Pressure ulcer of unspecified site, unspecified stage; L08.9 - Local infection of the skin and subcutaneous tissue, unspecified (4) Acute anemia: Status: Acute Category: Medical Code(s): D64.9 - Anemia, unspecified (5) FTT (failure to thrive) in adult: Status: Acute Category: Medical Code(s): R62.7 - Adult failure to thrive (6) S/P percutaneous endoscopic gastrostomy (PEG) tube placement: Status: Acute Category: Surgical Code(s): Z93.1 - Gastrostomy status (7) Gastrostomy tube dependent: Status: Acute Category: Medical Code(s): Z93.1 - Gastrostomy status (8) Diabetes mellitus: Status: Acute Category: Medical Code(s): E11.9 - Type 2 diabetes mellitus without complications (9) Severe protein-calorie malnutrition: Status: Acute Category: Medical Code(s): E43 - Unspecified severe protein-calorie malnutrition (10) Functional quadriplegia: Status: Acute Category: Medical Code(s): R53.2 - Functional quadriplegia (11) Oral thrush: Status: Acute Category: Medical Code(s): B37.0 - Candidal stomatitis (12) Decubitus ulcer of left hip, stage 4: Status: Acute Category: Medical Code(s): L89.224 - Pressure ulcer of left hip, stage 4 (13) Decubitus ulcer of right hip, stage 2: Status: Acute Category: Medical Code(s): L89.212 - Pressure ulcer of right hip, stage 2 (14) Decubitus ulcer of sacral region, unstageable: Status: Acute Category: Medical Code(s): L89.150 - Pressure ulcer of sacral region, unstageable Plan 73-year-old male with severe debility, failure to thrive, malnutrition, numerous decubitus wounds, deficits as residual effect of CVA. Presented for hyperglycemia. Found to have worsening anemia and suspected catheter associated UTI. Discussed case with ER physician, request admission for IV antibiotics and further goals of care discussions. Patient is a [place] of the [facility]. Continuing broad-spectrum antibiotics with vancomycin and meropenem. Continues to require inpatient management pending goals of care discussion with state guardian. Problems addressed as follows: Catheter associated UTI -Long-term indwelling catheter for urinary retention. Catheter removed in the ER. Replaced after arriving to the floor. - White count elevated this morning at 12. Urine growing greater than 100,000 gram-negative rods; speciation and sensitivity pending. Blood cultures remain negative. -Wound culture positive for Proteus, sensitive to current antibiotic regimen -Continue vancomycin and meropenem. Meropenem 1 g every 8 hours. Monitor for toxicity. -Follow-up daily CBC, CMP. -Follow-up procalcitonin, CRP ordered for the morning Per my review of chest imaging and abdominal CT, no concern for pneumonia or intra-abdominal infection. Decubitus wounds prominent with some undermining. In conjunction with exam, low concern for necrotizing fasciitis of left decubitus wound. Suspect undermining and worsening progression. Normal white count makes nec fasc less likely. Will monitor closely daily. Hyperglycemia Diabetes -A1c 8.8, sliding scale insulin with fingersticks every 6 hours; morning glucose 234 -TSH 2.9 -Glucose severely elevated on presentation of 400. Consistent with diabetes. Unclear as to why diabetes was removed from his diagnoses on returning back to halfway and why insulin was discontinued Multiple decubitus ulcers -Wound consulted -Patient is not a good candidate for debridement or surgical intervention, will manage left stage IV ulcer with wet-to-dry Betadine dressing until wound able to evaluate -Nursing placing padding over wounds. -Antibiotics as above Thrush: Diflucan 200 mg once per tube. Will continue nystatin oral solution 4 times a day with oral care, will administer orally to swish and then suction to remove given patient's n.p.o. status Anemia -Acute on chronic; continues to trickle down, hemoglobin 7.1 today. Transfusion threshold hemoglobin less than 7. Repeat CBC ordered for the morning History of CVA complicates all aspects of his care, he is a functional quadriplegic as a result of his history of CVA. Dependent on nursing for all ADLs Severe protein calorie malnutrition Failure to thrive Cachexia - Nutrition consulted to assist with supplementation. -Continue tube feeds, on Jevity 1.5 at halfway. Will administer Jevity 1.2 as we do not have 1.5 in-house at this time. Will work on adjustment after nutrition consult DNR Resume tube feed [place] of the [facility], guardian June number in chart Goals of care discussions. See attestations and ER note and progress note from yesterday. Will continue to attempt to contact state guardian to discuss goals of care. Patient appropriate candidate for hospice.
[2023-12-11] MEDS: OXYCODONE 5MG IMMEDIATE RELEASE TABLET 5 MG PO ×4 (04:45→23:19)
[2023-12-11] MEDS: MEROPENEM 1 GM in 0.9 % SODIUM CHLORIDE 100 ML IV ×3 (04:45→22:03)
[2023-12-11] MEDS: humaLOG 100 UNITS/ML 10ML VIAL (SSI) SQ ×2 (04:50→10:48)
[2023-12-11 06:45] LABS: POC Glucose,Bedside 234 (70-110)
[2023-12-11 06:54] LABS: Basophils % 0.2 % (0.1-2.0); Eosinophils # 0.1 K/mm3 (0.0-0.4); Eosinophils % 0.5 % (0.1-12.0); Hematocrit 22.6 % (42.0-52.0); Lymphocytes # 1.6 K/mm3 (0.7-4.5); Lymphocytes % 13.2 % (10-50); Mean Corpuscular HGB Conc 31.2 g/dL (31.8-35.4); Mean Corpuscular Hemoglobin 28.7 pg (27.0-31.2); Mean Corpuscular Volume 91.8 fl (80-94); Mean Platelet Volume 8.3 fl (7.4-10.4); Monocytes # 0.4 K/mm3 (0.1-1.0); Monocytes % 3.4 % (1.7-9.3); Neutrophils # 10.1 K/mm3 (1.8-7.8); Neutrophils % 82.7 % (37.0-80.0); Platelet Count 430 K/mm3 (142-424); Red Blood Count 2.47 M/mm3 (4.60-6.20); Red Cell Distribution Width 14.3 % (11.5-17.5); White Blood Count 12.2 K/mm3 (4.8-10.8)
--- NOTE | 2023-12-11 07:03 | PC.NURSE ---
Pt is non verbal and is unable to respond to staff. Pt has had no acute changes this shift.
[2023-12-11 07:27] LABS: Anion Gap 2.4 mEq/L (5-15); Blood Urea Nitrogen 24 mg/dl (9-20); Calcium 7.8 mg/dl (8.4-10.2); Carbon Dioxide 33 mmol/L (22.0-30.0); Chloride 107 mmol/L (98-107); Creatinine Clearance Estimated 55 mL/min (50-200); Estimated Glomerular Filt Rate 164 ml/min (>60); GFR (African American) 198 ML/MIN (>60); Glucose 184 mg/dl (74-100); Potassium 3.4 mmoL/L (3.5-5.1); Sodium 139 mmol/L (136-145); Vancomycin,Trough 10.6 ug/mL (5.0-10.0)
[2023-12-11 07:45] LABS: Hemoglobin 7.1 g/dL (14.1-18.0)
[2023-12-11 08:00] VITALS: BP 129/59; PULSE 97; RESP 17; TEMP 38; O2SAT 90
[2023-12-11] MEDS: QUETIAPINE 25MG TABLET 75 MG PO ×2 (08:44→22:03)
[2023-12-11] MEDS: LORazepam 0.5MG TABLET 0.5 MG PO ×2 (08:44→22:02)
[2023-12-11] MEDS: NYSTATIN SUSP 500,000 UNITS/5ML UDC 500000 UNIT PO ×4 (08:44→22:02)
[2023-12-11 09:09] LABS: HCV Ab Non Reactive (Non Reactive)
[2023-12-11] MEDS: ACETAMINOPHEN 325MG TAB 650 MG PO ×2 (10:12→22:02)
[2023-12-11 10:56] LABS: POC Glucose,Bedside 160 (70-110)
[2023-12-11] MEDS: VANCOMYCIN HCL 1,000 MG in 0.9 % SODIUM CHLORIDE 250 ML 125 MG IV (14:41)
[2023-12-11 16:00] VITALS: BP 130/62; PULSE 95; RESP 17; TEMP 37.9; O2SAT 91
[2023-12-11 16:46] LABS: POC Glucose,Bedside 125 (70-110)
--- NOTE | 2023-12-11 16:57 | PC.NURSE ---
GCS 9, PT RESPONDS TO VERBAL STIMULI BUT UNABLE TO PARTICIPATE IN CARE OR HOLD CONVERSATION. VERBAL EXPRESSION INCOMPREHENSIBLE. TUBE FEEDS PER ORDER NO GASTRIC RESIDUALS NOTED ON ASSESSMENT. BOWEL SOUNDS ACTIVE. MEDICATED FOR PAIN PER MAR ORDERS. PT APPEARS COMFORTABLE. 2 HOUR TURN WITH ORAL CARE. NYSTATIN SWABS PERFORMED. NYE CATH TO BEDSIDE DRAIN.
[2023-12-11 20:00] VITALS: BP 115/56; PULSE 90; RESP 18; TEMP 38.2; O2SAT 99
[2023-12-11] MEDS: TERAZOSIN 1MG CAPSULE 2 MG PO (22:03)
[2023-12-11 22:31] LABS: POC Glucose,Bedside 145 (70-110)
[2023-12-12 04:00] VITALS: BP 146/72; PULSE 94; RESP 18; TEMP 37.3; O2SAT 99; BMI 21.6
[2023-12-12] MEDS: OXYCODONE 5MG IMMEDIATE RELEASE TABLET 5 MG PO ×4 (05:02→23:19)
[2023-12-12] MEDS: MEROPENEM 1 GM in 0.9 % SODIUM CHLORIDE 100 ML IV ×3 (05:03→21:18)
[2023-12-12] MEDS: humaLOG 100 UNITS/ML 10ML VIAL (SSI) SQ ×3 (05:49→21:35)
--- NOTE | 2023-12-12 06:01 | PC.NURSE ---
Pt is non-non verbal and responds to name. Pt has received scheduled pain medication and seems pain free. Pt tube feed continues to run @ 60ml/hr with set 225 flush Q4 (total amount in 1503 for this shift). Pt has had no residual.Pt glucose is 262 this am and was treated per sliding scale. Pt hand and forearms remain swollen. Pt has had no acute changes.
[2023-12-12 07:00] LABS: POC Glucose,Bedside 262 (70-110)
[2023-12-12 08:00] VITALS: BP 134/60; PULSE 112; RESP 16; TEMP 37.6; O2SAT 93
[2023-12-12 08:04] LABS: Alanine Aminotransferase 121 U/L (12-78); Albumin Level 2.4 g/dl (3.5-5.0); Albumin/Globulin Ratio 0.6 (1.1-1.8); Alkaline Phosphatase 141 U/L (38-126); Aspartate Amino Transferase 89 U/L (17-59); Bilirubin,Total 0.5 mg/dl (0.2-1.3); Blood Urea Nitrogen 23 mg/dl (9-20); Calcium 8.1 mg/dl (8.4-10.2); Carbon Dioxide 31 mmol/L (22.0-30.0); Chloride 104 mmol/L (98-107); Creatinine Clearance Estimated 67 mL/min (50-200); Estimated Glomerular Filt Rate 164 ml/min (>60); GFR (African American) 198 ML/MIN (>60); Globulin 3.8 g/dL (1.3-3.2); Glucose 192 mg/dl (74-100); Sodium 137 mmol/L (136-145); Total Protein,Serum 6.2 g/dl (6.3-8.2)
--- NOTE | 2023-12-12 08:08 | SW/DCPLANNER ---
This patient currently resides at [facility] level of care. I will continue to follow up w/ Aby at [facility] until patient is medically stable for discharge. Discharge date is unknown at this time.
[2023-12-12 08:09] LABS: C-Reactive Protein 271.6 mg/L (0-4)
--- NOTE | 2023-12-12 08:09 | SW/DCPLANNER ---
Addendum entered by Cora Garcia 12/13/23 13:34: I am waiting to hear back from State Guardian (June). I have updated Roxanne w/ [facility] that the plan is for this patient to return today, Dr Wheeler to complete Attending Physician section of [facility] and once returning Dr Brown will complete consulting tomorrow. Patient will return to [facility] today [facility] level of care. Addendum entered by Cora Garcia 12/13/23 12:38: I have attempted to contact patient's Guardian (June) and both Nursing Consultants (Candace and Susan) regarding Hospice services for this patient. I am waiting to hear back from both then will follow up w/ . Original Note: This patient currently resides at [facility] level of care. I will continue to follow up barbara/ Roxanne at [facility] until patient is medically stable for discharge. Discharge date is unknown at this time.
--- NOTE | 2023-12-12 08:10 | EXP.PHA.PN ---
Subjective *Date: 12/12/23 *Time: 08:10 Medical Exam Vital signs and Labs for Last 24 Hours: Vital Signs Temp Pulse Resp BP Pulse Ox O2 Del Method 12/12/23 06:37 Room Air 12/12/23 05:00 Room Air 12/12/23 04:00 99.2 F 94 H 18 146/72 H 99 Room Air 12/12/23 03:00 Room Air 12/12/23 00:56 Room Air 12/11/23 23:00 Room Air 12/11/23 21:00 Room Air 12/11/23 20:00 Room Air 12/11/23 20:00 100.7 F H 90 18 115/56 L 99 Room Air 12/11/23 18:59 Room Air 12/11/23 17:00 Room Air 12/11/23 16:00 100.3 F H 95 H 17 130/62 91 L Room Air 12/11/23 15:00 Room Air 12/11/23 13:00 Room Air 12/11/23 11:00 Room Air 12/11/23 09:00 Room Air Intake and Output 12/11/23 12/12/23 12/12/23 23:59 07:59 15:59 Intake Total 1952 Output Total 1000 / 1000 Balance -999 Intake: Intake, Tube Feeding Amount 1503 / 1503 Intake, Total IV Amount 450 / 450 Meropenem 1 gm In 0.9 % Sodium 200 / 200 Chloride 100 ml @ 100 mls/hr IV Q8H GUIDO Rx#:[id number] Vancomycin HCl 1,000 mg In 0.9 250 / 250 % Sodium Chloride 250 ml @ 125 mls/hr IV Q18H GUIDO Rx#:[id number] Output: Output, Urine Amount 1000 / 1000 Other: Number of Unmeasured Voids 0 Weight 69.944 kg Patient Weight 12/12/23 23:59 Weight 69.944 kg Laboratory Results - last 24 hr 12/09/23 22:35: Hepatitis C Antibody Non reactive 12/11/23 10:43: POC Glucose 160 H 12/11/23 16:37: POC Glucose 125 H 12/11/23 22:00: POC Glucose 145 H 12/12/23 05:46: POC Glucose 262 H 12/12/23 06:40: Sodium 137, Potassium 4.0, Chloride 104, Carbon Dioxide 31 H, Anion Gap 6.0, BUN 23 H, Creatinine 0.50 L, Estimated Creat Clear 67, Estimated GFR 164, Est GFR ( Amer) 198, Glucose 192 H, Calcium 8.1 L, Total Bilirubin 0.5, AST 89 H D, ALT 121 H, Alkaline Phosphatase 141 H, Total Protein 6.2 L, Albumin 2.4 L, Globulin 3.8 H, Albumin/Globulin Ratio 0.6 L I & O for Labs for Last 24 Hours: Intake & Output 12/09/23 12/10/23 12/11/23 12/12/23 23:59 23:59 23:59 23:59 Intake Total 1900 / 2358 2734 / 3084 1952 Output Total 1000 / 1000 1000 / 1000 Balance 900 / 1358 1734 / 2084 1952 Weight 57.72 kg 57.72 kg 57.372 kg 69.944 kg Microbiology Reports for the Last 24 Hours: Microbiology 12/09/23 17:53 Blood Blood Culture - Preliminary Gram Positive Cocci 12/09/23 17:53 Blood Blood Culture - Preliminary Gram Positive Cocci 12/09/23 18:24 Buttock Gram Stain - Final 12/09/23 18:24 Buttock Wound Culture - Final Proteus mirabilis 12/09/23 18:24 Urine,Clean Catch Urine Culture - Preliminary Gram Negative Rods The patient's infection will respond to the chosen ABx?: Yes (URINE CX PENDING, WOUND CX PROTEUS MIRABILIS SENSITIVE TO MEROPENEM.) Is the patient receiving the right drug, dose, and route?: Yes Could a more targeted ABx be ordered?: No
[2023-12-12 08:21] LABS: Procalcitonin 0.339 ng/mL (0.0-2.0)
--- NOTE | 2023-12-12 08:31 | DIET.NUTRFU ---
Patient tolerating TF to better meet nutritional needs, increase goal rate to 70ml/hr, currently at 60ml to provide 2016kcal, 93.24gm protein and 1356ml formula water plus 120ml Q4H in [id number]/day=total volume of 2076ml/day. Currently receiving Jevity 1.2, at [place] she is on Jevity 1.5 due to hospital availability. Reviewing BS 160-[address]. Diabetic formula is 1.0kcal/kg which she may not tolerate increased rate to meet nutritional needs. Patient is severely PCM, based on multiple wounds pictures, patient has no fat tissue on BLE. Multiple pressure areas, ordered prostat AWC BID to add in 34gm protein plus Vitamin C, arginaid and zinc to promote healing. Urine output on 12/10 was 1000ml. No BM noted, May benefit from bowel regimen. Labs reviewed, unremarkable. Albumin 2.4L
[2023-12-12 08:45] LABS: Basophils # 0.1 K/mm3 (0-0.2); Basophils % 0.4 % (0.1-2.0); Eosinophils # 0.1 K/mm3 (0.0-0.4); Eosinophils % 0.8 % (0.1-12.0); Hematocrit 25.3 % (42.0-52.0); Hemoglobin 8.1 g/dL (14.1-18.0); Lymphocytes # 1.5 K/mm3 (0.7-4.5); Lymphocytes % 10.9 % (10-50); Mean Corpuscular Hemoglobin 29.3 pg (27.0-31.2); Mean Corpuscular Volume 91.8 fl (80-94); Mean Platelet Volume 8.3 fl (7.4-10.4); Monocytes # 0.5 K/mm3 (0.1-1.0); Monocytes % 3.7 % (1.7-9.3); Neutrophils # 11.3 K/mm3 (1.8-7.8); Neutrophils % 84.2 % (37.0-80.0); Platelet Count 419 K/mm3 (142-424); Red Blood Count 2.76 M/mm3 (4.60-6.20); Red Cell Distribution Width 14.3 % (11.5-17.5); White Blood Count 13.4 K/mm3 (4.8-10.8)
[2023-12-12] MEDS: NYSTATIN SUSP 500,000 UNITS/5ML UDC 500000 UNIT PO ×4 (09:14→21:17)
[2023-12-12] MEDS: LORazepam 0.5MG TABLET 0.5 MG PO ×2 (09:14→21:18)
[2023-12-12] MEDS: QUETIAPINE 25MG TABLET 75 MG PO ×2 (09:14→21:18)
[2023-12-12] MEDS: PRO-STAT AWC 30ML LIQUID PACKET 30 ML PO ×2 (09:14→21:17)
[2023-12-12] MEDS: VANCOMYCIN HCL 1,000 MG in 0.9 % SODIUM CHLORIDE 250 ML 125 MG IV (10:21)
[2023-12-12 10:24] LABS: POC Glucose,Bedside 124 (70-110)
--- NOTE | 2023-12-12 14:01 | HMH.PTWOUND ---
Rehab Inpt Wound Evaluation Rehab IP Wound Evaluation Start: 12/09/23 20:59 Freq: ONCE Status: Active Protocol: Document 12/12/23 13:49 ABDIEL (Rec: 12/12/23 14:01 PHOEVONNE [id number]) Rehab PT Wound Assessment Subjective Subjective 73 yowm adm to [facility] with significantly high glucose and diminished functional capacity. He presents upon adm with multiple wounds on B LE and hips that have been present for unknown period of time. He has PMH as follows: Dysphagia Decubital ulcer Dysphagia Cognitive impairment Abnormal abdominal CT scan [place] catheter in place FTT (failure to thrive) in adult Malnutrition HLD (hyperlipidemia) HTN (hypertension) Diabetes mellitus Urinary retention Cognitive decline Agitation Communication deficit SERINA (acute kidney injury) Anxiety and depression Insomnia CVA (cerebral vascular accident) Wound Left Lateral Foot Wound Type Pressure Ulcer Is This a Chronic Wound Yes Wound Staging Stage II Query Text:Stage I - Unbroken, red skin, no blanching. Stage II - Skin broken, superficial skin loss involving epidermis alone or also dermis. Partial loss of skin layers. Stage III - Pressure area involves epidermis, dermis and subcutaneous tissue, full thickness skin loss. Stage IV - Pressure area involves epidermis, subcutaneous tissue, bone and other supportive tissue. Full thickness skin loss with extensive destruction of underlying tissue and structures. Wound Length (cm) 2.0 Wound Width (cm) 2.0 Wound Depth (cm) 0.2 Wound Bed Appearance Dusky Red,Yellow,Villagran Wound Margins Description Well Defined Surrounding Tissue Appearance Purple Wound Drainage Description Purulent Drainage Amount Small Drainage Odor No Odor Primary Dressing Composite Comment betadine, bordered foam Wound Debridement Method Gauze,Mechanical Wound Debridement Amount of Tissue None Removed Dressing Change Patient Tolerance Tolerated Well Right Lateral Hip Wound Type Pressure Ulcer Is This a Chronic Wound Yes Wound Staging Unstageable Query Text:Stage I - Unbroken, red skin, no blanching. Stage II - Skin broken, superficial skin loss involving epidermis alone or also dermis. Partial loss of skin layers. Stage III - Pressure area involves epidermis, dermis and subcutaneous tissue, full thickness skin loss. Stage IV - Pressure area involves epidermis, subcutaneous tissue, bone and other supportive tissue. Full thickness skin loss with extensive destruction of underlying tissue and structures. Wound Length (cm) 9.0 Wound Width (cm) 6.0 Wound Depth (cm) 0.2 Wound Bed Appearance Dusky Red,Yellow,Necrotic Wound Margins Description Indistinct Surrounding Tissue Appearance Purple Wound Drainage Description Yellow Drainage Amount Moderate Drainage Odor Slight Odor Primary Dressing Composite Comment bordered foam Wound Debridement Method Gauze,Mechanical Dressing Change Patient Tolerance Tolerated Well Left Lateral Hip Wound Type Pressure Ulcer Is This a Chronic Wound Yes Wound Staging Stage IV Query Text:Stage I - Unbroken, red skin, no blanching. Stage II - Skin broken, superficial skin loss involving epidermis alone or also dermis. Partial loss of skin layers. Stage III - Pressure area involves epidermis, dermis and subcutaneous tissue, full thickness skin loss. Stage IV - Pressure area involves epidermis, subcutaneous tissue, bone and other supportive tissue. Full thickness skin loss with extensive destruction of underlying tissue and structures. Wound Length (cm) 5.0 Wound Width (cm) 6.0 Wound Depth (cm) 3.0 Wound Bed Appearance Dusky Red,Villagran,White,Slough, Necrotic Percentage Granulated (%) 40 Percentage of Slough (%) 60 Wound Margins Description Unattached Undermining Position 11 o'clock Undermining Depth (cm) 3.0 Surrounding Tissue Appearance Purple Wound Drainage Description Yellow Drainage Amount Large Drainage Odor Foul Odor Packing Type Alginate Primary Dressing Absorbant Pad Comment ABD pad Wound Debridement Method Gauze,Mechanical Wound Debridement Amount of Tissue Minimal Removed Dressing Change Patient Tolerance Tolerated Well Plan/Recommendation Comment Continue dressing changes as above. B hip wounds would be best served by extensive debridement of necrotic tissue . However, it is unlikely patient is a good surgical candidate and it would be too difficult to debride these large wounds at bedside at this time. Will follow and assist nursing with dressing changes as needed. Eval Complexity Eval Charge Codes 64474 - High Complexity PHYSICIAN CERTIFICATION: I certify the specified therapy services for Jose Walls are required, authorized, and reviewed every 30 days.
[2023-12-12 16:00] VITALS: BP 138/67; PULSE 106; RESP 17; TEMP 37.3; O2SAT 97
--- NOTE | 2023-12-12 18:27 | PC.NURSE ---
no issues from previous shift. adriana changed the dsgs to bilat hips, left hip has consistent drainage. tube feed at 70ml/hr with flushes 120 every 4 hrs, tolerating well with 0 residuals. q2 turns and on back to get bilat hips a rest.
[2023-12-12 18:59] LABS: POC Glucose,Bedside 203 (70-110)
[2023-12-12 20:00] VITALS: BP 150/86; PULSE 113; RESP 20; TEMP 37.9; O2SAT 97
--- NOTE | 2023-12-12 20:01 | EXP.EVENT.NO ---
Nursing staff advised patient had not had a BM for 72 hours, that he is on tube feeding.. exam abdomen is flat but is sort of rigid patient hard to determine due to his mental status if he is in any pain but no bloating noted at this time plan will give 5 ounces of mag citrate per NG tube now if no results within 4 hours may repeat x 1 no more than 10 ounces of mag citrate every 24 hours
[2023-12-12] MEDS: MAGNESIUM CITRATE 10OZ BOTTLE 5 OZ PO (21:17)
[2023-12-12] MEDS: TERAZOSIN 1MG CAPSULE 2 MG PO (21:18)
[2023-12-12 22:13] LABS: POC Glucose,Bedside 184 (70-110)
--- NOTE | 2023-12-12 23:36 | P.PN_ITS ---
Subjective *Date: 12/12/23 *Time: 23:45 Interval history: Patient resting in bed comfortably without acute distress. Exam Data for Last 24 hours Vital signs and Labs for Last 24 Hours: Temp Pulse Resp BP Pulse Ox O2 Del Method 100.2 F H 113 H 20 150/86 H 97 Room Air 12/12/23 20:00 12/12/23 20:00 12/12/23 20:00 12/12/23 20:00 12/12/23 20:00 12/12/23 20:00 Laboratory Results - last 24 hr 12/12/23 05:46: POC Glucose 262 H 12/12/23 06:40: Sodium 137, Potassium 4.0, Chloride 104, Carbon Dioxide 31 H, Anion Gap 6.0, BUN 23 H, Creatinine 0.50 L, Estimated Creat Clear 67, Estimated GFR 164, Est GFR ( Amer) 198, Glucose 192 H, Calcium 8.1 L, Total Bilirubin 0.5, AST 89 H D, ALT 121 H, Alkaline Phosphatase 141 H, C-Reactive Protein 271.6 H, Total Protein 6.2 L, Albumin 2.4 L, Globulin 3.8 H, Albumin/Globulin Ratio 0.6 L, Procalcitonin 0.339 12/12/23 08:25: WBC 13.4 H, RBC 2.76 L, Hgb 8.1 L, Hct 25.3 L, MCV 91.8, MCH 29.3, MCHC 32.0, RDW 14.3, Plt Count 419, MPV 8.3, Neut % (Auto) 84.2 H, Lymph % (Auto) 10.9, [place] % (Auto) 3.7, Eos % (Auto) 0.8, Baso % (Auto) 0.4, Neut # (Auto) 11.3 H, Lymph # (Auto) 1.5, [place] # (Auto) 0.5, Eos # (Auto) 0.1, Baso # (Auto) 0.1 12/12/23 10:16: POC Glucose 124 H 12/12/23 16:25: POC Glucose 203 H 12/12/23 21:19: POC Glucose 184 H I & O for Last 24 hours: Intake & Output 12/09/23 12/10/23 12/11/23 12/12/23 23:59 23:59 23:59 23:59 Intake Total 1900 / 2358 2734 / 3084 2433 / 2433 Output Total 1000 / 1000 1000 / 1000 600 / 600 Balance 900 / 1358 1734 / 2084 1833 / 1833 Weight 57.72 kg 57.72 kg 57.372 kg 69.944 kg Microbiology Reports for the Last 24 Hours: Microbiology 12/09/23 17:53 Blood Blood Culture - Final Staphylococcus aureus 12/09/23 17:53 Blood Blood Culture - Final Staphylococcus aureus 12/09/23 18:24 Urine,Clean Catch Urine Culture - Final Proteus mirabilis Constitutional Comments: Constitutional Constitutional: mild distress, cachectic, chronically ill appearing, disheveled and cooperative *Routine HEENT Exam Head: Present normocephalic and atraumatic Eye: Present EOMI and PERRL ENT: Present mucous membranes moist Comments: Severe oral thrush, bitemporal wasting, loss of periorbital fat *Routine Neck Exam Neck: Present supple *Routine Respiratory Exam Respiratory: Present CTA bilaterally; Absent rhonchi, stridor, wheezes or crackles *Routine Cardiovascular Exam Cardiovascular: Present RRR *Routine Abdominal Exam Abdominal: Present soft and normoactive bowel sounds Comments: Scaphoid abdomen, G-tube in place, stoma clean dry and intact. No erythema *Routine Rectal Exam Rectal:: no hemorrhoids *Routine Genitalia Exam Genitalia:: normal male *Routine Extremities Exam Extremities: Absent edema Comments: Sarcopenia *Routine Skin Exam Skin: Present lesions and wounds Comments: Eschars on medial aspect of right foot, numerous stage I and II wounds to bilateral feet. Sacral unstageable decubitus wound with eschar in place approximately 3 cm in diameter; right hip with larger 4 cm stage II decubitus wound over trochanter. Left-sided stage IV decubitus wound with exposed bone and undermining over left hip *Routine Neurological Exam Neurological: Present alert Comments: Unable to assess orientation; dependent for all ADLs. Functional quadriplegia Assessment and Plan *Assessment and plan (1) Catheter-associated urinary tract infection: Status: Acute Category: Medical Code(s): T83.511A - Infection and inflammatory reaction due to indwelling urethral catheter, initial encounter; N39.0 - Urinary tract infection, site not specified (2) Hyperglycemia: Status: Acute Category: Medical Code(s): R73.9 - Hyperglycemia, unspecified (3) Infected decubitus ulcer: Status: Acute Category: Medical Code(s): L89.90 - Pressure ulcer of unspecified site, unspecified stage; L08.9 - Local infection of the skin and subcutaneous tissue, unspecified (4) Acute anemia: Status: Acute Category: Medical Code(s): D64.9 - Anemia, unspecified (5) FTT (failure to thrive) in adult: Status: Acute Category: Medical Code(s): R62.7 - Adult failure to thrive (6) S/P percutaneous endoscopic gastrostomy (PEG) tube placement: Status: Acute Category: Surgical Code(s): Z93.1 - Gastrostomy status (7) Gastrostomy tube dependent: Status: Acute Category: Medical Code(s): Z93.1 - Gastrostomy status (8) Diabetes mellitus: Status: Acute Category: Medical Code(s): E11.9 - Type 2 diabetes mellitus without complications (9) Severe protein-calorie malnutrition: Status: Acute Category: Medical Code(s): E43 - Unspecified severe protein-calorie malnutrition (10) Functional quadriplegia: Status: Acute Category: Medical Code(s): R53.2 - Functional quadriplegia (11) Oral thrush: Status: Acute Category: Medical Code(s): B37.0 - Candidal stomatitis (12) Decubitus ulcer of left hip, stage 4: Status: Acute Category: Medical Code(s): L89.224 - Pressure ulcer of left hip, stage 4 (13) Decubitus ulcer of right hip, stage 2: Status: Acute Category: Medical Code(s): L89.212 - Pressure ulcer of right hip, stage 2 (14) Decubitus ulcer of sacral region, unstageable: Status: Acute Category: Medical Code(s): L89.150 - Pressure ulcer of sacral region, unstageable Plan 73-year-old male with severe debility, failure to thrive, malnutrition, numerous decubitus wounds, deficits as residual effect of CVA. Presented for hyperglycemia. Found to have worsening anemia and suspected catheter associated UTI. Discussed case with ER physician, request admission for IV antibiotics and further goals of care discussions. Patient is a [facility] of the [facility]. Continuing broad-spectrum antibiotics with vancomycin and meropenem. Continues to require inpatient management pending goals of care discussion with state guardian. Problems addressed as follows: MRSA bacteremia Catheter associated UTI -Long-term indwelling catheter for urinary retention. Catheter removed in the ER. Replaced after arriving to the floor. - White count increased to 13.2 today. Urine culture reveals Proteus Mirablis sensitive to ceftriaxone. - BCx2 growing MRSA sensitive to vancomycin. -Continue vancomycin. - Started ceftriaxone, disctoninued meropenem. -Follow-up daily CBC, CMP. -Follow-up procalcitonin, CRP ordered for the morning Per my review of chest imaging and abdominal CT, no concern for pneumonia or intra-abdominal infection. Decubitus wounds prominent with some undermining. In conjunction with exam, low concern for necrotizing fasciitis of left decubitus wound. Suspect undermining and worsening progression. Normal white count makes nec fasc less likely. Will monitor closely daily. Hyperglycemia Diabetes -A1c 8.8, sliding scale insulin with fingersticks every 6 hours; morning glucose 234 -TSH 2.9 -Glucose severely elevated on presentation of 400. Consistent with diabetes. Unclear as to why diabetes was removed from his diagnoses on returning [facility] and why insulin was discontinued Multiple decubitus ulcers -Wound consulted -Patient is not a good candidate for debridement or surgical intervention, will manage left stage IV ulcer with wet-to-dry Betadine dressing until wound able to evaluate -Nursing placing padding over wounds. -Antibiotics as above Thrush: Diflucan 200 mg once per tube. Will continue nystatin oral solution 4 times a day with oral care, will administer orally to swish and then suction to remove given patient's n.p.o. status Anemia -Acute on chronic; continues to trickle down, hemoglobin 7.1 today. Transfusion threshold hemoglobin less than 7. Repeat CBC ordered for the morning History of CVA complicates all aspects of his care, he is a functional quadriplegic as a result of his history of CVA. Dependent on nursing for all ADLs Severe protein calorie malnutrition Failure to thrive Cachexia - Nutrition consulted to assist with supplementation. -Continue tube feeds, on Jevity 1.5 at [place]. Will administer Jevity 1.2 as we do not have 1.5 in-house at this time. Will work on adjustment after nutrition consult DNR Resume tube feed Ctoo of the state, guardian Saniya Chu number in chart Goals of care discussions. See attestations and ER note and progress note from yesterday. Will continue to attempt to contact state guardian to discuss goals of care. Patient appropriate candidate for hospice.
--- NOTE | 2023-12-13 01:26 | PC.NURSE ---
New bottle of [place]ity 1.2 started at this time. 70 ml/hr, Q4 120ml flush. volume cleared 1000 ml feed, and 386 ml flush
[2023-12-13 03:20] LABS: Vancomycin,Trough 9.9 ug/mL (5.0-10.0)
[2023-12-13] MEDS: PHA TO NURSING INSTRUCTION 1 EACH NOTAPPLIC (03:45)
[2023-12-13] MEDS: VANCOMYCIN HCL 1,000 MG in 0.9 % SODIUM CHLORIDE 250 ML 125 MG IV (03:45)
[2023-12-13 04:00] VITALS: BP 153/68; PULSE 110; RESP 18; TEMP 36.9; O2SAT 99; BMI 21.8
[2023-12-13] MEDS: OXYCODONE 5MG IMMEDIATE RELEASE TABLET 5 MG PO ×2 (04:30→09:32)
[2023-12-13] MEDS: MAGNESIUM CITRATE 10OZ BOTTLE 5 OZ PO (04:30)
[2023-12-13] MEDS: humaLOG 100 UNITS/ML 10ML VIAL (SSI) SQ ×2 (04:41→10:51)
[2023-12-13 06:14] LABS: POC Glucose,Bedside 216 (70-110)
[2023-12-13 07:22] LABS: Basophils % 0.3 % (0.1-2.0); Eosinophils # 0.1 K/mm3 (0.0-0.4); Eosinophils % 1.2 % (0.1-12.0); Hematocrit 25.6 % (42.0-52.0); Hemoglobin 8.1 g/dL (14.1-18.0); Lymphocytes # 1.8 K/mm3 (0.7-4.5); Lymphocytes % 17.8 % (10-50); Mean Corpuscular HGB Conc 31.5 g/dL (31.8-35.4); Mean Corpuscular Hemoglobin 28.3 pg (27.0-31.2); Mean Platelet Volume 8.4 fl (7.4-10.4); Monocytes # 0.4 K/mm3 (0.1-1.0); Monocytes % 4.3 % (1.7-9.3); Neutrophils # 7.7 K/mm3 (1.8-7.8); Neutrophils % 76.4 % (37.0-80.0); Platelet Count 401 K/mm3 (142-424); Red Blood Count 2.84 M/mm3 (4.60-6.20); Red Cell Distribution Width 14.1 % (11.5-17.5); White Blood Count 10.1 K/mm3 (4.8-10.8)
--- NOTE | 2023-12-13 07:42 | P.DS_ITS ---
General Admission date:: 12/09/23 Discharge date: 12/13/23 HPI HPI HPI: Mr. Walls is a 73-year-old male who resides [facility]. Was recently found to have elevated glucoses in the 500s. On recheck, consistently elevated today. Was reportedly taken off insulin recently during a prolonged stay at either or [facility]. It is unclear exactly which facility however a review of patient's chart in [facility] for does not show a recent visit. He presented from his nursing facility due to elevated glucose. On arrival to the ER, patient found to be nonverbal, having oral thrush, numerous severe no nhealing ulcers, elevated temp of 99.4 and elevated glucose on labs. Labs also consistent with significant inflammatory marker elevation, worsening anemia. CT abdomen pelvis obtained showing ulceration of left hip with questionable osteomyelitis. Undermining of ulceration. Normal white count. Given his severe deconditioning, worsening state, and progressing malnutrition and wounds, medicine was consulted for admission and further management. On arrival to the floor, patient is hemodynamically stable. Afebrile. Tries to answer questions but answers only yes/no. Cooperative on exam. On room air. Patient cachectic with sarcopenia and significant ulceration on bilateral hips, sacrum, feet. Strong concern for failure to thrive and malnutrition. Hospital Course Hospital Course Hospital Course: 73-year-old male with severe debility, failure to thrive, malnutrition, numerous decubitus wounds, deficits as residual effect of CVA. Presented for hyperglycemia. Found to have worsening anemia and suspected catheter associated UTI. Discussed case with ER physician, request admission for IV antibiotics and further goals of care discussions. Patient initiated on broad-spectrum antibiotics. Able to transition to antibiotics per tube to complete empiric course for his infections. Goals of care discussion with state guardian, will transition to hospice care. State form completed by hospitalist. Needs consulting physician to complete at time of arrival to [place]. Recommend transitioning to hospice care given patient's overall condition. Problems addressed as follows: MRSA bacteremia Catheter associated UTI - Long-term indwelling catheter for urinary retention. Catheter removed in the ER. Replaced after arriving to the floor. White count showed gradual improvement to 10 by day of discharge. Urine culture reveals Proteus Mirablis sensitive to ceftriaxone and Bactrim. Patient to be transitioned to Bactrim at time of discharge to complete empiric course. Needs 5 more days. Per my review of chest imaging and abdominal CT, no concern for pneumonia or intra-abdominal infection. Decubitus wounds prominent with some undermining. In conjunction with exam, low concern for necrotizing fasciitis of left decubitus wound. Suspect undermining and worsening progression. Normal white count makes nec fasc less likely. Will monitor closely daily. Hyperglycemia Diabetes -A1c 8.8, sliding scale insulin with fingersticks every 6 hours; morning glucose 234; TSH 2.9. Glucose severely elevated on presentation of 400. Consistent with diabetes. Unclear as to why diabetes was removed from [facility] diagnoses [facility] and why insulin was discontinued. Recommend once daily long-acting insulin based on his daily short acting needs. Will continue insulin glargine 8 units daily Multiple decubitus ulcers -Wound consulted. Dressings placed on decubitus wounds. Patient is not a good candidate for debridement or surgical intervention. Wounds unlikely to heal due to patient's nutritional deficiencies, functional decline, inability to offload for any extended period of time to allow for healing. Thrush: Diflucan 200 mg once per tube on admission. Continue nystatin to complete 14 days of therapy; oral solution 4 times a day with oral care. Anemia: Acute on chronic; continues to trickle down, hemoglobin 8.1 today. Transfusion threshold hemoglobin less than 7. 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 Dependent on nursing for all ADLs Severe protein calorie malnutrition Failure to thrive Cachexia - Nutrition consulted to assist with supplementation. [facility] Jevity [facility].5 [facility]. Administer Jevity 1.2 during admission. Recommend reevaluating appropriateness of tube feeds given goals of care and transitioning to hospice. Goals of care discussions. See attestations and ER note and progress note from yesterday. Will continue to attempt to contact state guardian to discuss goals of care. Patient appropriate candidate for hospice. Total time spent on discharge 47 minutes in counseling, documentation, chart review, and direct care with patient. Exam Data for Last 24 hours Vital signs and Labs for Last 24 Hours: Temp Pulse Resp BP Pulse Ox O2 Del Method 98.4 F 110 H 18 153/68 H 99 Room Air 12/13/23 04:00 12/13/23 04:00 12/13/23 04:00 12/13/23 04:00 12/13/23 04:00 12/13/23 05:00 Laboratory Results - last 24 hr 12/12/23 06:40: Sodium 137, Potassium 4.0, Chloride 104, Carbon Dioxide 31 H, Anion Gap 6.0, BUN 23 H, Creatinine 0.50 L, Estimated Creat Clear 67, Estimated GFR 164, Est GFR ( Amer) 198, Glucose 192 H, Calcium 8.1 L, Total Bilirubin 0.5, AST 89 H D, ALT 121 H, Alkaline Phosphatase 141 H, C-Reactive Protein 271.6 H, Total Protein 6.2 L, Albumin 2.4 L, Globulin 3.8 H, Albumin/Globulin Ratio 0.6 L, Procalcitonin 0.339 12/12/23 08:25: WBC 13.4 H, RBC 2.76 L, Hgb 8.1 L, Hct 25.3 L, MCV 91.8, MCH 29.3, MCHC 32.0, RDW 14.3, Plt Count 419, MPV 8.3, Neut % (Auto) 84.2 H, Lymph % (Auto) 10.9, [place] % (Auto) 3.7, Eos % (Auto) 0.8, Baso % (Auto) 0.4, Neut # (Auto) 11.3 H, Lymph # (Auto) 1.5, [place] # (Auto) 0.5, Eos # (Auto) 0.1, Baso # (Auto) 0.1 12/12/23 10:16: POC Glucose 124 H 12/12/23 16:25: POC Glucose 203 H 12/12/23 21:19: POC Glucose 184 H 12/13/23 02:25: Vancomycin Trough 9.9 12/13/23 04:37: POC Glucose 216 H 12/13/23 07:08: WBC 10.1, RBC 2.84 L, Hgb 8.1 L, Hct 25.6 L, MCV 90.0, MCH 28.3, MCHC 31.5 L, RDW 14.1, Plt Count 401, MPV 8.4, Neut % (Auto) 76.4, Lymph % (Auto) 17.8, [place] % (Auto) 4.3, Eos % (Auto) 1.2, Baso % (Auto) 0.3, Neut # (Auto) 7.7, Lymph # (Auto) 1.8, [place] # (Auto) 0.4, Eos # (Auto) 0.1, Baso # (Auto) 0.0 I & O for Last 24 hours: Intake & Output 12/10/23 12/11/23 12/12/23 12/13/23 23:59 23:59 23:59 23:59 Intake Total 1900 / 2358 2734 / 3084 2433 / 2533 1486 / 1486 Output Total 1000 / 1000 1000 / 1000 600 / 600 400 / 400 Balance 900 / 1358 1734 / 2084 1833 / 1933 1086 / 1086 Weight 57.72 kg 57.372 kg 69.944 kg 70.715 kg Microbiology Reports for the Last 24 Hours: Microbiology 12/09/23 17:53 Blood Blood Culture - Final Staphylococcus aureus 12/09/23 17:53 Blood Blood Culture - Final Staphylococcus aureus 12/09/23 18:24 Urine,Clean Catch Urine Culture - Final Proteus mirabilis Constitutional Constitutional: mild distress, chronically ill appearing and somnolent *Routine HEENT Exam Head: Present normocephalic and atraumatic Eye: Present EOMI ENT: Present mucous membranes moist Comments: Improving thrush *Routine Respiratory Exam Respiratory: Absent respiratory distress, rhonchi, wheezes or crackles *Routine Cardiovascular Exam Cardiovascular: Present RRR *Routine Abdominal Exam Abdominal: Present soft and normoactive bowel sounds Comments: Scaphoid abdomen, PEG tube in place with clean stoma *Routine Rectal Exam Patient deferred: visual exam *Routine Exam Comments: Normal Bharathi V male, [place] in place *Routine Extremities Exam Extremities: Absent cyanosis Comments: Thin, sarcopenia Eschars on medial aspect of right foot, numerous stage I and II wounds to bilateral feet. Sacral unstageable decubitus wound with eschar in place approximately 3 cm in diameter; right hip with larger 4 cm stage II decubitus wound over trochanter. Left-sided stage IV decubitus wound with exposed bone and undermining over left hip *Routine Skin Exam Skin: Present pallor; Absent gangrene Comments: See extremity exam, numerous decubitus wounds *Routine Neurological Exam Comments: Obtunded, baseline neurologic deficits from previous CVA, nonverbal Results Data Completed and Pending Labs on day of discharge: Labs from last 24 hours 12/13/23 12/13/23 12/13/23 07:08 04:37 02:25 WBC 10.1 RBC 2.84 L Hgb 8.1 L Hct 25.6 L MCV 90.0 MCH 28.3 MCHC 31.5 L RDW 14.1 Plt Count 401 MPV 8.4 Neut % (Auto) 76.4 Lymph % (Auto) 17.8 [place] % (Auto) 4.3 Eos % (Auto) 1.2 Baso % (Auto) 0.3 Neut # (Auto) 7.7 Lymph # (Auto) 1.8 [place] # (Auto) 0.4 Eos # (Auto) 0.1 Baso # (Auto) 0.0 Sodium Potassium Chloride Carbon Dioxide Anion Gap BUN Creatinine Estimated Creat Clear Estimated GFR Est GFR ( Amer) Glucose POC Glucose 216 H Calcium Total Bilirubin AST ALT Alkaline Phosphatase C-Reactive Protein Total Protein Albumin Globulin Albumin/Globulin Ratio Procalcitonin Vancomycin Trough 9.9 12/12/23 12/12/23 12/12/23 21:19 16:25 10:16 WBC RBC Hgb Hct MCV MCH MCHC RDW Plt Count MPV Neut % (Auto) Lymph % (Auto) [place] % (Auto) Eos % (Auto) Baso % (Auto) Neut # (Auto) Lymph # (Auto) [place] # (Auto) Eos # (Auto) Baso # (Auto) Sodium Potassium Chloride Carbon Dioxide Anion Gap BUN Creatinine Estimated Creat Clear Estimated GFR Est GFR ( Amer) Glucose POC Glucose 184 H 203 H 124 H Calcium Total Bilirubin AST ALT Alkaline Phosphatase C-Reactive Protein Total Protein Albumin Globulin Albumin/Globulin Ratio Procalcitonin Vancomycin Trough 12/12/23 12/12/23 08:25 06:40 WBC 13.4 H RBC 2.76 L Hgb 8.1 L Hct 25.3 L MCV 91.8 MCH 29.3 MCHC 32.0 RDW 14.3 Plt Count 419 MPV 8.3 Neut % (Auto) 84.2 H Lymph % (Auto) 10.9 [place] % (Auto) 3.7 Eos % (Auto) 0.8 Baso % (Auto) 0.4 Neut # (Auto) 11.3 H Lymph # (Auto) 1.5 [place] # (Auto) 0.5 Eos # (Auto) 0.1 Baso # (Auto) 0.1 Sodium 137 Potassium 4.0 Chloride 104 Carbon Dioxide 31 H Anion Gap 6.0 BUN 23 H Creatinine 0.50 L Estimated Creat Clear 67 Estimated GFR 164 Est GFR ( Amer) 198 Glucose 192 H POC Glucose Calcium 8.1 L Total Bilirubin 0.5 AST 89 H D ALT 121 H Alkaline Phosphatase 141 H C-Reactive Protein 271.6 H Total Protein 6.2 L Albumin 2.4 L Globulin 3.8 H Albumin/Globulin Ratio 0.6 L Procalcitonin 0.339 Vancomycin Trough DS: Diagnosis Discharge Diagnosis (1) Catheter-associated urinary tract infection: Status: Acute Code(s): T83.511A - Infection and inflammatory reaction due to indwelling urethral catheter, initial encounter; N39.0 - Urinary tract infection, site not specified (2) Hyperglycemia: Status: Acute Code(s): R73.9 - Hyperglycemia, unspecified (3) Infected decubitus ulcer: Status: Acute Code(s): L89.90 - Pressure ulcer of unspecified site, unspecified stage; L08.9 - Local infection of the skin and subcutaneous tissue, unspecified (4) Acute anemia: Status: Acute Code(s): D64.9 - Anemia, unspecified (5) FTT (failure to thrive) in adult: Status: Acute Code(s): R62.7 - Adult failure to thrive (6) S/P percutaneous endoscopic gastrostomy (PEG) tube placement: Status: Acute Code(s): Z93.1 - Gastrostomy status (7) Gastrostomy tube dependent: Status: Acute Code(s): Z93.1 - Gastrostomy status (8) Diabetes mellitus: Status: Acute Code(s): E11.9 - Type 2 diabetes mellitus without complications (9) Severe protein-calorie malnutrition: Status: Acute Code(s): E43 - Unspecified severe protein-calorie malnutrition (10) Functional quadriplegia: Status: Acute Code(s): R53.2 - Functional quadriplegia (11) Oral thrush: Status: Acute Code(s): B37.0 - Candidal stomatitis (12) Decubitus ulcer of left hip, stage 4: Status: Acute Code(s): L89.224 - Pressure ulcer of left hip, stage 4 (13) Decubitus ulcer of right hip, stage 2: Status: Acute Code(s): L89.212 - Pressure ulcer of right hip, stage 2 (14) Decubitus ulcer of sacral region, unstageable: Status: Acute Code(s): L89.150 - Pressure ulcer of sacral region, unstageable Meds Home Medications and Allergies Home Medications ?Medication ?Instructions ?Recorded ?Confirmed ?Type terazosin 2 mg capsule 2 mg PO HS #90 caps 07/26/23 12/10/23 Rx lorazepam 0.5 mg tablet 0.5 mg PO BID #60 tabs 08/04/23 12/10/23 Rx acetaminophen 500 mg tablet 500 mg PO Q6HP PRN MILD PAIN/FEVER 12/10/23 12/10/23 History ibuprofen 600 mg tablet 600 mg PO Q6HP PRN Moderate Pain 12/10/23 12/10/23 History (Scale Score 5-6) lactulose 20 gram/30 mL oral 20 g PO DAILYP PRN Constipation 12/10/23 12/10/23 History solution lansoprazole 15 mg capsule,delayed 15 mg PO BID 12/10/23 12/10/23 History release ondansetron HCl 4 mg tablet 4 mg PO Q6HP PRN NAUSEA/VOMITING 12/10/23 12/10/23 History oxycodone 5 mg tablet 5 mg PO QID 12/10/23 12/10/23 History quetiapine 25 mg tablet (Seroquel) 75 mg PO BID 12/10/23 12/10/23 History insulin glargine 100 unit/mL (3 8 unit (0.08 mL) SQ HS #3 mL 12/13/23 Rx mL) subcutaneous pen nystatin 100,000 unit/mL oral 500,000 unit (5 mL) PO QID 10 days 12/13/23 Rx suspension #200 mL sulfamethoxazole 800 1 tab PO BID 5 days #10 tabs 12/13/23 Rx mg-trimethoprim 160 mg tablet (Bactrim DS) New Prescriptions to Start Prescriptions: insulin glargine Silvino Wheeler nystatin Silvino Wheeler sulfamethoxazole-trimethoprim [Bactrim DS] Silvino Wheeler Allergies Allergy/AdvReac Type Severity Reaction Status Date / Time simvastatin AdvReac muscle Verified 12/08/23 10:16 aches Discharge Plan Disposition Patient Disposition: Hospice - Medical Facility Condition: Critical Discharge Order Discharge Orders: Discharge Order (Routine); Ordered 12/13/23 Ordered By: Silvino Wheeler Follow up Plan Follow up with: Garrett Brown MD [Primary Care Provider] - Enter time for follow up Prescriptions/Medication Reconciliation: New nystatin 100,000 unit/mL Suspension 500,000 unit PO QID 10 Days Qty: 200 0RF sulfamethoxazole-trimethoprim [Bactrim DS] 800-160 mg tablet 1 tab PO BID 5 Days Qty: 10 0RF insulin glargine 100 unit/mL (3 mL) insulin pen 8 unit SQ HS Qty: 3 0RF Continued terazosin 2 mg capsule 2 mg PO HS Qty: 90 3RF lorazepam 0.5 mg tablet 0.5 mg PO BID Qty: 60 0RF lansoprazole 15 mg capsule,delayed release(DR/EC) 15 mg PO BID ondansetron HCl 4 mg Tablet 4 mg PO Q6HP PRN (Reason: NAUSEA/VOMITING) oxycodone 5 mg Tablet 5 mg PO QID acetaminophen 500 mg Tablet 500 mg PO Q6HP PRN (Reason: MILD PAIN/FEVER) ibuprofen 600 mg Tablet 600 mg PO Q6HP PRN (Reason: Moderate Pain (Scale Score 5-6)) quetiapine [Seroquel] 25 mg Tablet 75 mg PO BID lactulose 20 gram/30 mL Solution 20 g PO DAILYP PRN (Reason: Constipation) Discontinued loperamide 2 mg Capsule 2 mg PO Q6HP PRN (Reason: LOOSE STOOLS) Problem Reconciliation Problems Reviewed?: Yes Patient Discharge Instructions ACTIVITY: Continue current activity DIET: continue same diet Patient Instructions: DI for Pressure Injuries, DI for Failure to Thrive, Catheter-Associated Urinary Tract Infection Print Language: Swedish Providers Primary Care Provider: Garrett Brown Admit Provider: Silvino Wheeler Attending Provider: Silvino Wheeler
[2023-12-13 08:00] VITALS: BP 163/57; PULSE 94; RESP 19; TEMP 37.2; O2SAT 97
[2023-12-13 08:26] LABS: Vancomycin,Peak 15.2 ug/ml (11-39)
[2023-12-13 08:48] LABS: Alanine Aminotransferase 114 U/L (12-78); Albumin Level 2.4 g/dl (3.5-5.0); Albumin/Globulin Ratio 0.6 (1.1-1.8); Alkaline Phosphatase 148 U/L (38-126); Aspartate Amino Transferase 84 U/L (17-59); Bilirubin,Total 0.5 mg/dl (0.2-1.3); Blood Urea Nitrogen 22 mg/dl (9-20); Carbon Dioxide 27 mmol/L (22.0-30.0); Chloride 105 mmol/L (98-107); Creatinine Clearance Estimated 68 mL/min (50-200); Estimated Glomerular Filt Rate 212 ml/min (>60); GFR (African American) 257 ML/MIN (>60); Globulin 3.7 g/dL (1.3-3.2); Glucose 195 mg/dl (74-100); Sodium 134 mmol/L (136-145); Total Protein,Serum 6.1 g/dl (6.3-8.2)
[2023-12-13 08:53] LABS: C-Reactive Protein 286.2 mg/L (0-4)
[2023-12-13 09:05] LABS: Anion Gap 6.4 mEq/L (5-15); Potassium 4.4 mmoL/L (3.5-5.1)
--- NOTE | 2023-12-13 09:27 | P.PN_ITS ---
Subjective *Date: 12/13/23 *Time: 09:27 Medical Exam Vital signs and Labs for Last 24 Hours: Vital Signs Temp Pulse Resp BP Pulse Ox O2 Del Method 12/13/23 05:00 Room Air 12/13/23 04:00 98.4 F 110 H 18 153/68 H 99 Room Air 12/12/23 23:00 Room Air 12/12/23 20:00 Room Air 12/12/23 20:00 100.2 F H 113 H 20 150/86 H 97 Room Air 12/12/23 17:00 Room Air 12/12/23 16:00 99.1 F 106 H 17 138/67 97 Room Air 12/12/23 11:00 Room Air Intake and Output 12/12/23 12/13/23 12/13/23 23:59 07:59 15:59 Intake Total 480 / 2533 1486 / 1486 Output Total 600 / 600 400 / 400 Balance -120 / 1933 1086 / 1086 Intake: Intake, Oral Amount 480 / 480 Intake, Tube Feeding Amount 1000 / 1000 Intake, Tube Irrigant Amount 386 / 386 Intake, Total IV Amount 100 / 100 Meropenem 1 gm In 0.9 % Sodium 100 / 100 Chloride 100 ml @ 100 mls/hr IV Q8H [facility] Rx#:[id number] Output: Output, Urine Amount 600 / 600 400 / 400 Other: Number of Unmeasured Voids 0 0 Number of Bowel Movements 1 Weight 70.715 kg Patient Weight 12/13/23 23:59 Weight 70.715 kg Laboratory Results - last 24 hr 12/12/23 10:16: POC Glucose 124 H 12/12/23 16:25: POC Glucose 203 H 12/12/23 21:19: POC Glucose 184 H 12/13/23 02:25: Vancomycin Trough 9.9 12/13/23 04:37: POC Glucose 216 H 12/13/23 07:08: WBC 10.1, RBC 2.84 L, Hgb 8.1 L, Hct 25.6 L, MCV 90.0, MCH 28.3, MCHC 31.5 L, RDW 14.1, Plt Count 401, MPV 8.4, Neut % (Auto) 76.4, Lymph % (Auto) 17.8, [place] % (Auto) 4.3, Eos % (Auto) 1.2, Baso % (Auto) 0.3, Neut # (Auto) 7.7, Lymph # (Auto) 1.8, [place] # (Auto) 0.4, Eos # (Auto) 0.1, Baso # (Auto) 0.0, Sodium 134 L, Potassium 4.4, Chloride 105, Carbon Dioxide 27, Anion Gap 6.4, BUN 22 H, Creatinine 0.40 L, Estimated Creat Clear 68, Estimated GFR 212, Est GFR ( Amer) 257 D, Glucose 195 H, Calcium 8.0 L, Total Bilirubin 0.5, AST 84 H, ALT 114 H, Alkaline Phosphatase 148 H, C-Reactive Protein 286.2 H, Total Protein 6.1 L, Albumin 2.4 L, Globulin 3.7 H, Albumin/Globulin Ratio 0.6 L, Vancomycin Peak 15.2 I & O for Labs for Last 24 Hours: Intake & Output 12/10/23 12/11/23 12/12/23 12/13/23 23:59 23:59 23:59 23:59 Intake Total 1900 / 2358 2734 / 3084 2433 / 2533 1486 / 1486 Output Total 1000 / 1000 1000 / 1000 600 / 600 400 / 400 Balance 900 / 1358 1734 / 2084 1833 / 1933 1086 / 1086 Weight 57.72 kg 57.372 kg 69.944 kg 70.715 kg Microbiology Reports for the Last 24 Hours: Microbiology 12/09/23 17:53 Blood Blood Culture - Final Staphylococcus aureus 12/09/23 17:53 Blood Blood Culture - Final Staphylococcus aureus 12/09/23 18:24 Urine,Clean Catch Urine Culture - Final Proteus mirabilis The patient's infection will respond to the chosen ABx?: Yes (BLOOD CX = MRSA, WHITE COUNT TREND DOWN TO 10.1, TMAX 100.2.) Is the patient receiving the right drug, dose, and route?: Yes Could a more targeted ABx be ordered?: No (MRSA)
[2023-12-13] MEDS: NYSTATIN SUSP 500,000 UNITS/5ML UDC 500000 UNIT PO ×2 (09:32→13:04)
[2023-12-13] MEDS: LORazepam 0.5MG TABLET 0.5 MG PO (09:32)
[2023-12-13] MEDS: CEFTRIAXONE 1 GM 1 GM in 0.9 % SODIUM CHLORIDE 50 ML IV (09:32)
[2023-12-13] MEDS: PRO-STAT AWC 30ML LIQUID PACKET 30 ML PO (09:32)
[2023-12-13] MEDS: QUETIAPINE 25MG TABLET 75 MG PO (09:32)
--- NOTE | 2023-12-13 11:44 | EXP.PHA.CONS ---
Pharmacy Consult Date: 12/13/23 Time: 11:45 Referring provider: DR. TEIXEIRA Reason for Consult:: VANCOMYCIN LEVELS Allergies Allergy/AdvReac Type Severity Reaction Status Date / Time simvastatin AdvReac muscle Verified 12/08/23 10:16 aches Home Medications ?Medication ?Instructions ?Recorded ?Confirmed ?Type terazosin 2 mg capsule 2 mg PO HS #90 caps 07/26/23 12/10/23 Rx lorazepam 0.5 mg tablet 0.5 mg PO BID #60 tabs 08/04/23 12/10/23 Rx acetaminophen 500 mg tablet 500 mg PO Q6HP PRN MILD PAIN/FEVER 12/10/23 12/10/23 History ibuprofen 600 mg tablet 600 mg PO Q6HP PRN Moderate Pain 12/10/23 12/10/23 History (Scale Score 5-6) lactulose 20 gram/30 mL oral 20 g PO DAILYP PRN Constipation 12/10/23 12/10/23 History solution lansoprazole 15 mg capsule,delayed 15 mg PO BID 12/10/23 12/10/23 History release loperamide 2 mg capsule 2 mg PO Q6HP PRN LOOSE STOOLS 12/10/23 12/10/23 History ondansetron HCl 4 mg tablet 4 mg PO Q6HP PRN NAUSEA/VOMITING 12/10/23 12/10/23 History oxycodone 5 mg tablet 5 mg PO QID 12/10/23 12/10/23 History quetiapine 25 mg tablet (Seroquel) 75 mg PO BID 12/10/23 12/10/23 History New Prescriptions to Start Prescriptions: Height: 1.8 m Weight: 70.715 kg Laboratory Results:: Laboratory Results - last 24 hr 12/12/23 16:25: POC Glucose 203 H 12/12/23 21:19: POC Glucose 184 H 12/13/23 02:25: Vancomycin Trough 9.9 12/13/23 04:37: POC Glucose 216 H 12/13/23 07:08: WBC 10.1, RBC 2.84 L, Hgb 8.1 L, Hct 25.6 L, MCV 90.0, MCH 28.3, MCHC 31.5 L, RDW 14.1, Plt Count 401, MPV 8.4, Neut % (Auto) 76.4, Lymph % (Auto) 17.8, [place] % (Auto) 4.3, Eos % (Auto) 1.2, Baso % (Auto) 0.3, Neut # (Auto) 7.7, Lymph # (Auto) 1.8, [place] # (Auto) 0.4, Eos # (Auto) 0.1, Baso # (Auto) 0.0, Sodium 134 L, Potassium 4.4, Chloride 105, Carbon Dioxide 27, Anion Gap 6.4, BUN 22 H, Creatinine 0.40 L, Estimated Creat Clear 68, Estimated GFR 212, Est GFR ( Amer) 257 D, Glucose 195 H, Calcium 8.0 L, Total Bilirubin 0.5, AST 84 H, ALT 114 H, Alkaline Phosphatase 148 H, C-Reactive Protein 286.2 H, Total Protein 6.1 L, Albumin 2.4 L, Globulin 3.7 H, Albumin/Globulin Ratio 0.6 L, Vancomycin Peak 15.2 Medical History: Medical History (Updated 12/09/23 @ 22:44 by Silvino Teixeira MD) Dysphagia Decubital ulcer Dysphagia Cognitive impairment Abnormal abdominal CT scan [place] catheter in place FTT (failure to thrive) in adult Malnutrition HLD (hyperlipidemia) HTN (hypertension) Diabetes mellitus Urinary retention Cognitive decline Agitation Communication deficit SERINA (acute kidney injury) Anxiety and depression Insomnia CVA (cerebral vascular accident) Assessment and Plan Assessment and plan all Dx Assessment and Plan for all problems:: PATIENT'S VANCOMYCIN LEVELS WERE 9.9 MCG/ML AND 15.2 MCG/ML FOR TROUGH AND PEAK, RESPECTIVELY. RECOMMENDED PATIENT TAKE VANCOMYCIN 750 MG Q12H. PATIENT HAS BEEN RECEIVING VANCOMYCIN 1000 MG Q18H.
[2023-12-13 11:47] LABS: POC Glucose,Bedside 183 (70-110)
== END 2023-12-13 17:15 | disposition hospice, inpatient (51) | DRG 698 ==
LOC: ER 19:51 → 2ND 19:53
PROVIDERS: Student in an Organized Health Care Education/Training Program; Admitting Provider Internal Medicine Adolescent Medicine; Emergency Provider Student in an Organized Health Care Education/Training Program; PCP Family Medicine; Visit Provider Internal Medicine Adolescent Medicine
DX: T83.511A Infection and inflammatory reaction due to indwelling urethral catheter, initial encounter (principal); E43 Unspecified severe protein-calorie malnutrition; L89.224 Pressure ulcer of left hip, stage 4; G82.50 Quadriplegia, unspecified; B37.0 Candidal stomatitis; R64 Cachexia; N39.0 Urinary tract infection, site not specified; L08.9 Local infection of the skin and subcutaneous tissue, unspecified; D64.9 Anemia, unspecified; R62.7 Adult failure to thrive; Z93.1 Gastrostomy status; L89.212 Pressure ulcer of right hip, stage 2; L89.150 Pressure ulcer of sacral region, unstageable; Z68.23 Body mass index [BMI] 23.0-23.9, adult; L89.892 Pressure ulcer of other site, stage 2; E11.65 Type 2 diabetes mellitus with hyperglycemia; I69.365 Other paralytic syndrome following cerebral infarction, bilateral; B96.4 Proteus (mirabilis) (morganii) as the cause of diseases classified elsewhere; B95.62 Methicillin resistant Staphylococcus aureus infection as the cause of diseases classified elsewhere; Z79.4 Long term (current) use of insulin; I10 Essential (primary) hypertension; Z66 Do not resuscitate
CPT/HCPCS: 36415; 71045; 74177; 80048; 80053; 80202; 81001; 82803; 82947; 82962; 83036; 83605; 83735; 84100; 84145; 84443; 85025; 86140; 86803; 87040; 87070; 87077; 87086; 87088; 87186; 87205; 87389; 87636; 99291; J0696; J2185; J2543; J3370; J7050; J7120; Q9967

== ENCOUNTER 2024-04-25 21:19 | Emergency (ER) | payer MEDICARE, SELFPAY ==
[2024-04-25 21:19] VITALS: BP 157/66; PULSE 66; RESP 16; TEMP 37.1; O2SAT 97; BMI 14.9
--- NOTE | 2024-04-25 21:40 | CT_ITS ---
PROCEDURE INFORMATION: Exam: CT Cervical Spine Without Contrast Exam date and time: 04/25/2024 10:05 PM Age: 73 years old Clinical indication: Injury or trauma; Fall; Blunt trauma; Additional info: Fall, struck head TECHNIQUE: Imaging protocol: Computed tomography of the cervical spine without contrast. Radiation optimization: All CT scans at this facility use at least one of these dose optimization techniques: automated exposure control; mA and/or kV adjustment per patient size (includes targeted exams where dose is matched to clinical indication); or iterative reconstruction. COMPARISON: CT HEAD/BRAIN WO CON 04/25/2024 10:00 PM FINDINGS: Bones: No acute fracture. Normal alignment. Ossification of longitudinal ligament. Lungs: Unremarkable. Soft tissues: Unremarkable. IMPRESSION: No acute findings.
--- NOTE | 2024-04-25 21:40 | CT_ITS ---
PROCEDURE INFORMATION: Exam: CT Head Without Contrast Exam date and time: 04/25/2024 10:00 PM Age: 73 years old Clinical indication: Injury or trauma; Fall; Blunt trauma (contusions or hematomas); Additional info: Fell, struck head TECHNIQUE: Imaging protocol: Computed tomography of the head without contrast. Radiation optimization: All CT scans at this facility use at least one of these dose optimization techniques: automated exposure control; mA and/or kV adjustment per patient size (includes targeted exams where dose is matched to clinical indication); or iterative reconstruction. COMPARISON: RF FL BARIUM SWALLOW MODIFIED 09/27/2023 11:22 AM FINDINGS: Brain: No hemorrhage. Periventricular hypodensity. Bilateral basal ganglial dystrophic calcification. Cerebral ventricles: Ventriculomegaly of both lateral, 3rd and 4th ventricles. Paranasal sinuses: Visualized sinuses are unremarkable. No fluid levels. Mastoid air cells: Visualized mastoid air cells are well aerated. Bones: Unremarkable. No acute fracture. Soft tissues: Unremarkable. IMPRESSION: Etiology indeterminate but nontraumatic hydrocephalus and suspected transependymal edema suspected.
--- NOTE | 2024-04-25 22:21 | [facility].EDGENADL ---
Discharge Plan Disposition Patient Disposition: Home, Self-Care Chief Complaint: Fall Prescriptions Prescriptions: No Action insulin aspart U-100 100 unit/mL (3 mL) insulin pen 1 sliding scale dose SQ USEASDIRECTD acetaminophen 500 mg tablet 500 mg feeding tube TID sennosides [Senna Laxative] 8.6 mg tablet 8.6 mg feeding tube BID terazosin 2 mg capsule 2 mg feeding tube HS lansoprazole 30 mg capsule,delayed release(DR/EC) 30 mg feeding tube BID oxycodone 10 mg tablet 15 mg feeding tube Q6H Qty: 180 0RF lorazepam 0.5 mg tablet 0.5 mg feeding tube BID Qty: 60 2RF insulin glargine 100 unit/mL (3 mL) insulin pen 8 unit SQ HS Qty: 3 0RF lactulose 20 gram/30 mL solution 20 g feeding tube DAILYP PRN (Reason: Constipation) acetaminophen 500 mg tablet 500 mg feeding tube Q6HP PRN (Reason: MILD PAIN/FEVER) ondansetron HCl 4 mg tablet 4 mg feeding tube Q6HP PRN (Reason: NAUSEA/VOMITING) Referrals Follow up/Referrals: Provider,Referral, MD [Primary Care Provider] - See instructions Clinical Impressions Clinical Impression: Fall, Complex laceration of face Print Language Print Language: Upper Sorbian Discharge ED Provider: Mayur [employer] General Adult HPI General Chief complaint: Fall Stated complaint: Laceration above RT eye Time Seen by Provider: 04/25/24 21:33 Mode of Arrival: EMS Source of Information: EMS Limitations: Physical Limitations Description of Symptoms (Recalled from ER Triage Doc. by RN): Patient fall out of bed, laceration to right forehead. Patient normally non-verbal, bedbound, g-tube History of Present Illness HPI narrative: Patient presenting with laceration of the right side of his head. Related Data Home Medications ?Medication ?Instructions ?Recorded ?Confirmed acetaminophen 500 mg tablet 500 mg feeding tube Q6HP PRN MILD 01/17/24 03/27/24 PAIN/FEVER acetaminophen 500 mg tablet 500 mg feeding tube TID 01/17/24 03/27/24 insulin aspart U-100 100 unit/mL 1 sliding scale dose SQ 01/17/24 03/27/24 (3 mL) subcutaneous pen USEASDIRECTD lactulose 20 gram/30 mL oral 20 g feeding tube DAILYP PRN 01/17/24 03/27/24 solution Constipation ondansetron HCl 4 mg tablet 4 mg feeding tube Q6HP PRN 01/17/24 03/27/24 NAUSEA/VOMITING sennosides 8.6 mg tablet (Senna 8.6 mg feeding tube BID 01/17/24 03/27/24 Laxative) terazosin 2 mg capsule 2 mg feeding tube HS 01/17/24 03/27/24 lansoprazole 30 mg capsule,delayed 30 mg feeding tube BID 03/27/24 03/27/24 release Previous Rx's ?Medication ?Instructions ?Recorded insulin glargine 100 unit/mL (3 8 unit (0.08 mL) SQ HS #3 mL 12/13/23 mL) subcutaneous pen oxycodone 10 mg tablet 15 mg (1.5 x 10 mg) feeding tube 02/28/24 Q6H #180 tabs lorazepam 0.5 mg tablet 0.5 mg feeding tube BID #60 tabs 03/06/24 Allergies Allergy/AdvReac Type Severity Reaction Status Date / Time simvastatin AdvReac muscle Verified 03/27/24 09:58 aches PFSH PFSH Disclaimer: The information contained in this section may have been updated after the patient was seen, as this information can be updated by other users. Medical History Oral thrush Dysphagia due to old cerebrovascular accident Dysphagia Decubital ulcer Dysphagia Cognitive impairment severe Abnormal abdominal CT scan [place] catheter in place FTT (failure to thrive) in adult Malnutrition HLD (hyperlipidemia) no current meds HTN (hypertension) Diabetes mellitus Urinary retention Cognitive decline Agitation Communication deficit SERINA (acute kidney injury) Anxiety and depression Insomnia CVA (cerebral vascular accident) Surgical History S/P percutaneous endoscopic gastrostomy (PEG) tube placement Social History Smoking Status: Unknown if ever smoked alcohol intake: former year quit: unkn current occupational status: disabled Travel in the last 8 weeks: None Have you lived/traveled outside [place] in past 30 days?: No Contact w/someone who lives/traveled outside [place] past 30 days?: No Exposure to someone with infectious disease in past 14 days?: No Do you have a fever (greater than 100.4 F or 38 C)?: No Have you tested positive for COVID-19: No Exposed to someone with COVID-19 in past 14 days?: No Do you have a sore throat?: No Do you have a cough?: No Do you have any weakness?: No Do you have any diarrhea?: No Are you experiencing any unusual bleeding?: No Do you have any muscle aches/pain?: No Do you have any abdominal pain?: No Are you experiencing loss of taste or smell?: No Other Medical History Have you received the Flu Vaccine for this season: No Have you received the Pneumonia Vaccine: No ROS Obtained: Yes unobtainable due to mental condition Physical Exam General General appearance: alert and in no apparent distress Head Head exam: normocephalic and other (Complex laceration just lateral right eye) Eye Eye exam: Present normal appearance ENT ENT exam: Present mucous membranes dry Respiratory Respiratory exam: Present normal lung sounds bilaterally; Absent respiratory distress Cardiovascular Cardiovascular exam: Present regular rate and normal rhythm Extremities Exam Extremities exam: Present other (Contracted) Neurological Exam Neurological exam: Present other (At reported neurologic baseline. Contracted, nonverbal and not interacting) Medical Decision Making Medical Records Medical records reviewed: Yes I reviewed the patient's medical records. Screening: Per USPSTF and CDC recommendations, given the prevalence of disease in our region, it is our hospital?s policy to screen for HIV and viral Hepatitis for all patients aged 18 and over and those with ongoing risk factors. Juan Inquiry Pt receiving controlled substance: No Juan was queried for this patient: No Vital Signs: 04/25/24 21:19 04/25/24 22:30 04/25/24 22:32 Temperature 98.7 F Temperature Source Temporal Artery Scan Pulse Rate [Radial] 66 Respiratory Rate 16 Blood Pressure 186/84 H 186/75 H Blood Pressure [Right Arm] 157/66 H Blood Pressure Mean 118 112 Blood Pressure Mean [Right Arm] 96 Blood Pressure Source [Right Arm] Automatic Cuff Blood Pressure Position [Right Arm] Supine 02 Sat by Pulse Oximetry 97 Oxygen Delivery Method Room Air Orders (Tests/Meds): ED MEDICATIONS Discontinued Medications Generic Name Dose Route Start Last Admin Trade Name Freq PRN Reason Stop Dose Admin Lidocaine HCl 20 ml 04/25/24 21:40 04/25/24 22:37 Lidocaine 1% 20ml Mdv SUBCUT 04/25/24 21:41 20 ml ONCE ONE Administration ORDERS Category Date Time Status CT cervical spine wo con Stat Cat Scan 04/25/24 21:[address] head/brain wo con Stat Cat Scan 04/25/24 21:40 Completed Medical Decision Narrative: This is a 73-year-old male he of hypertension, hyperlipidemia, severe cognitive impairment secondary to CVA, bilateral upper and lower extremity contractures, nonverbal presenting with fall. Patient was at nursing facility, they stated that they had no idea how patient ended up in the floor, but was laying next to his bed with a laceration next to his eyebrow. Called EMS who brought him in for further evaluation. On my evaluation, patient no acute distress. History was obtained entirely with EMS. He does have complex laceration of the right side of his eyebrow. Out of abundance of caution, CT scans were ordered of the head and neck. On independent interpretation, I do not appreciate any acute intracranial hemorrhage or any cervical spine injury. Laceration was repaired (see note). Patient appropriate for discharge Procedures Laceration Laceration 1: Site: face Side (If applicable): right Size (cm): 4 Description: stellate, flap and irregular Depth: involves subcutaneous layer and involves muscle layer Local Anesthetic: lidocaine 1% Amount of anesthesia used (mL): 10 Pre-repair: wound explored and irrigated extensively Skin layer closed with: vicryl Size (cm): 4-0 Number of sutures: 14 Technique: simple, interrupted Critical Care Critical Care Time Critical Care Time: No
[2024-04-25 22:30] VITALS: BP 186/84
[2024-04-25 22:32] VITALS: BP 186/75
[2024-04-25] MEDS: LIDOCAINE 1% 20ML MDV 20 ML SUBCUT (22:37)
[2024-04-25 23:00] VITALS: BP 150/69
[2024-04-25 23:31] VITALS: BP 162/104
[2024-04-25 23:49] VITALS: BP 187/77
[2024-04-26 00:11] VITALS: BP 187/77; PULSE 89; RESP 20; TEMP 36.9; O2SAT 98
== END 2024-04-26 00:12 | disposition home or self-care (01) ==
PROVIDERS: Emergency Provider Emergency Medicine
DX: S01.91XA Laceration without foreign body of unspecified part of head, initial encounter (principal); W06.XXXA Fall from bed, initial encounter; Y93.89 Activity, other specified; Y92.9 Unspecified place or not applicable
CPT/HCPCS: 12013; 70450; 72125; 99284

== ENCOUNTER 2024-05-14 14:19 | Outpatient (CLI) | payer MEDICARE, SELFPAY ==
[2024-05-14 14:31] LABS: Microscopic, Urine URINE MICROSCOPIC (MICROSCOPIC)
[2024-05-14 14:37] LABS: Basophils % 0.2 % (0.1-2.0); Eosinophils % 0.1 % (0.1-12.0); Hematocrit 26.2 % (42.0-52.0); Hemoglobin 8.3 g/dL (14.1-18.0); Lymphocytes # 1.6 K/mm3 (0.7-4.5); Lymphocytes % 7.3 % (10-50); Mean Corpuscular HGB Conc 31.7 g/dL (31.8-35.4); Mean Corpuscular Hemoglobin 24.3 pg (27.0-31.2); Mean Corpuscular Volume 76.8 fl (80-94); Mean Platelet Volume 10.8 fl (7.4-10.4); Monocytes # 1.3 K/mm3 (0.1-1.0); Neutrophils # 18.3 K/mm3 (1.8-7.8); Neutrophils % 85.8 % (37.0-80.0); Platelet Count 372 K/mm3 (142-424); Red Blood Count 3.41 M/mm3 (4.60-6.20); Red Cell Distribution Width 16.3 % (11.5-17.5); White Blood Count 21.3 K/mm3 (4.8-10.8)
[2024-05-14 15:02] LABS: MANUAL DIFFERENTIAL MANUAL DIFFERENTIAL (MANUAL DIFF)
[2024-05-14 15:06] LABS: Albumin Level 3.1 g/dl (3.5-5.0); Chloride 94 mmol/L (98-107); Potassium 5.3 mmoL/L (3.5-5.1); Sodium 126 mmol/L (136-145)
[2024-05-14 15:08] LABS: Alanine Aminotransferase 54 U/L (12-78); Aspartate Amino Transferase 47 U/L (17-59); Blood Urea Nitrogen 26 mg/dl (9-20); Estimated Glomerular Filt Rate 133 ml/min (>60); GFR (African American) 161 ML/MIN (>60)
[2024-05-14 15:09] LABS: Albumin/Globulin Ratio 0.8 (1.1-1.8); Alkaline Phosphatase 180 U/L (38-126); Anion Gap 11.3 mEq/L (5-15); Bilirubin,Total 0.6 mg/dl (0.2-1.3); Calcium 8.3 mg/dl (8.4-10.2); Carbon Dioxide 26 mmol/L (22.0-30.0); Globulin 3.9 g/dL (1.3-3.2); Glucose 97 mg/dl (74-100)
[2024-05-14 15:11] LABS: Appearance,Urine Cloudy (Clear); Color,Urine Amber (Yellow); PH,Urine 8.5 (5.0-8.5)
[2024-05-14 15:12] LABS: Blood, Urine 4+ (Negative); Glucose,Urine (UA) Negative (Negative); Ketones,Urine Negative (Negative); Protein,Urine Trace (Negative)
[2024-05-14 15:13] LABS: Bilirubin,Urine Negative (Negative); Leukocyte Esterase,Urine 3+ (Negative); Nitrate,Urine POSITIVE (Negative); Squamous Epithelial Cell,Urine Occasional #/hpf (0-5)
[2024-05-14 15:14] LABS: Bacteria,Urine 3+ /lpf
[2024-05-14 16:02] LABS: Lymphocytes % 8 % (10-50); Monocytes % 6 % (2-9); Neutrophils % 86 % (42-76); Platelet Estimate Normal; RBC Morphology Normal; Total Cells Counted 100
== END 2024-05-14 23:59 | disposition home or self-care (01) ==
LOC: LAB.DROPOF 14:21
PROVIDERS: PCP Family Medicine; Visit Provider Family Medicine
DX: E11.9 Type 2 diabetes mellitus without complications (principal)
CPT/HCPCS: 80053; 81001; 85007; 85025; 85027; 87086; 87088; 87186